=== PATIENT | female | born 1955 | race Caucasian/White ===

== ENCOUNTER → 2016-12-06 | Outpatient (CLI) | payer OTHER, BC ==
[~2016-12-06] MED LIST: ADAL1KIT; ALBUAER INH; BUTACAP36 PO; CALC600T9 PO; CLR10 PO; CYCL5TAB PO; CYM/30 PO; FEXO1TAB49 PO; FIBER PO; GABA-113 PO; HYDR0.5T PO; HYZ/50125 PO; KETO10TA PO; LORA-741 PO; METO50TA7 PO; NABU500T3 PO; NABU750T PO; OMEG10007 PO; OMEP40CA PO; PRED-301 PO; PSYLLIUM PO; RSTOPS OP; RXC5 PO; SNG10 PO; TRAM-10 PO; ULT50X PO
[2016-12-06 11:07] LABS: BASO % 1.3 %; BASO ABS # 0.07 K/uL (0-0.2); COMPLETE YES; HEMATOCRIT 40.4 % (37-47); LYMPH % 36.3 %; MEAN CELL VOLUME 84.5 fL (80-100); MEAN CORPUSCULAR HEMOGLOBIN 29.9 pg (25-34); MEAN CORPUSCULAR HGB CONC 35.4 g/dl (32-36); MEAN PLATELET VOLUME 9.1 fL (7.4-10.4); MONO % 7.1 %; NEUT % 50.3 %; PLATELET COUNT 228 K/uL (130-400); RED BLOOD COUNT 4.78 M/uL (4.2-5.4); WHITE BLOOD COUNT 5.24 K/uL (4.8-10.8)
[2016-12-06 11:39] LABS: BLOOD UREA NITROGEN 12 mg/dl (7-18); BUN/CREATININE RATIO 13.8 (10-20); CALCIUM 9.4 mg/dl (8.5-10.1); CARBON DIOXIDE 30 mmol/L (21-32); CHLORIDE 102 mmol/L (98-107); GLUCOSE 120 mg/dl (70-99); POTASSIUM 3.6 mmol/L (3.5-5.1); SODIUM 139 mmol/L (136-145)
== END | disposition home or self-care (01) ==
LOC: C.CPL 10:21
PROVIDERS: ATTEND Orthopaedic Surgery
DX: Z01.810 Encounter for preprocedural cardiovascular examination (principal); Z01.812 Encounter for preprocedural laboratory examination; M75.21 Bicipital tendinitis, right shoulder

== ENCOUNTER → 2016-12-29 | Day surgery (SDC) | payer OTHER, BC ==
[2016-12-12 10:09] VITALS: Ht 174 cm; Wt 88.6 kg
[~2016-12-29] VITALS: Ht 174 cm; Wt 88.6 kg
[~2016-12-29] MED LIST changes: +ATROPINE SULFATE 0.1 MG/ML 5ML SYR IV PRN; +BUPIVACAINE/EPINEPHRINE 0.25% 1:200,000 30 ML VIAL ONE; +BUPIVACAINE/EPINEPHRINE 0.5% MPF 1:200,000 30 ML VIAL ONE; +CEFAZOLIN 2000 MG/60 ML D5W IV SCH; -CLR10 PO; -CYCL5TAB PO; +DEXAMETHASONE SOD INJ 4 MG/ML VIAL ONE; +EpHEDrine SULFATE INJ 50 MG/ML AMP IV PRN; +EpHEDrine SULFATE INJ 50 MG/ML AMP ONE; +EpINEphrine INJ 1MG/ML AMP 1 MG/ML AMP ONE; +FENTANYL CITRATE INJ 50 MCG/1 ML 2 ML VIAL IV PRN; +FENTANYL CITRATE INJ 50 MCG/1 ML 2 ML VIAL ONE; +FLUMAZENIL 0.1 MG/1 ML 10 ML VIAL IV PRN; +KETOROLAC TROMETHAMINE 30 MG/ML VIAL IV. PRN; +LABETALOL HCL IV 5 MG/ML 20ML IV PRN; +LACTATED RINGER'S 1000ML 1,000 ML IV SCH; +LIDOCAINE HCL 2% 2 ML VIAL (20MG/ML) ONE; -LORA-741 PO; +MEPERIDINE HCL 25 MG/ML CARP IV PRN; +MIDAZOLAM HCL 1 MG/ML 2ML VIAL ONE; +NALOXONE HCL 0.4 MG/1 ML VIAL/CARP IV PRN; +ONDANSETRON INJ 2 MG/ML 2 ML VIAL IV PRN; +ONDANSETRON INJ 2 MG/ML 2 ML VIAL ONE; +PHENYLEPHRINE 100MCG/ML 5ML SYR IV PRN; +PHENYLEPHRINE HCL INJ 10 MG/ML VIAL ONE; +PROPOFOL IV EMULSION 10 MG/ML 20 ML VIAL IV ONE; +ROPIVACAINE 0.5% 5 MG/ML 30 ML VIAL ONE; -RXC5 PO; +SCOPOLAMINE 1.5 MG TDSY TD ONE; -SNG10 PO; +SODIUM CHLORIDE 0.9% 1000ML 1,000 ML IV SCH; +TRAMADOL HCL 50 MG TAB PO PRN
--- NOTE | 2016-12-29 11:09 | History & Physical Bridge - SC ---
H&P Re-Evaluation Bridge Note: I have examined the patient, reviewed the History & Physical and in the interval since the performance of the History & Physical I have noted the following changes of clinical significance: No changes noted
--- NOTE | 2016-12-29 12:38 | Discharge Instructions-SurgCtr ---
Discharge Instructions Visit Reason for Visit: Right Shoulder Biceps Tendinitis, Joint Pain Discharge Discharge Diagnosis / Problem: SAME ABOVE Discharge Goals Goal(s): Decrease discomfort, Improve function Medications Stopped Medications Name(s): Humira Last dose 12/10/16 Fiorinal Last dose 12/26/16 Fish Oil Last dose 12/18/16 Nabumetone Last Dose 12/18/16 Restart Stopped Medication(s): MAY RESTART 12/30/2016 Activity Recommendations Activity Limitations: resume your previous activity Lifting Limitations: gradually increase as tolerated Exercise/Sports Limitations: gradually increase as tolerated Anesthesia . Post Anesthesia Instructions: If you have had General Anesthesia or IV Sedation: * Do not drive today. * Resume driving when surgeon permits. * Do not make important decisions or sign legal documents today. * Call surgeon for: 1. Temperature elevations greater than 101 degrees F. 2. Uncontrollable pain. 3. Excessive bleeding. 4. Persistent nausea and vomiting. 5. Medication intolerance (nausea, vomiting or rash). * For nausea and vomiting use only clear liquids such as: tea, soda, bouillon until nausea subsides, then gradually increase diet as tolerated. * If you have any concerns or questions, call your surgeon's office. If physician is unavailable and it is an emergency, call 911 or go to the nearest emergency room. . Instructions / Follow-Up Instructions / Follow-Up MEDICATIONS: * Resume previous medications unless instructed otherwise by your surgeon. * Always take pain medication on a full stomach or with food to avoid upset stomach. * Do not drink alcohol or drive while taking narcotics. * Ibuprofen or Tylenol may be taken if narcotic not needed. SPECIAL CARE INSTRUCTIONS: __ None _X_ Keep extremity elevated and iced x 48 hours; apply ice 20-30 minutes 8-10 times/day. May remove at night. _X_ Sling (WEAR NEEDED FOR COMFORT) __24 hrs/day __ Remove at night __ Shoulder Immobilizer __ 24 hrs/day __ Remove at night _X_ Dressing __ Maintain until seen in office, may shower with plastic over site _X_ Remove dressings in 24-48 hours and then may shower _X_ Cover incisions with band-aids after showering __ Do not remove steri-strips Call physician if chills or temperature rises above 102 degrees or pain unrelieved by prescribed pain medications at . . Diet Recommendations Home Diet: no limitations Fluid Restriction: None Procedures Procedures Performed: Right Shoulder Arthroscopy, Extensive Debridement, Biceps Tenotomy Pending Studies Studies pending at discharge: no Work Instructions Return To Work: after follow-up Medical Emergencies . Who to Call and When: Medical Emergencies: If at any time you feel your situation is an emergency, please call 911 immediately. . Non-Emergent Contact Non-Emergency issues call your: Primary Care Provider Call Non-Emergent contact if: you have a fever, temperature is above 101.5 . . "Provider Documentation" section prepared by Kolton Arias.
[2016-12-29 13:06] VITALS: TEMP 37
--- NOTE | 2016-12-29 13:12 | OPERATIVE REPORT ---
DATE OF OPERATION: 12/29/2016 PREOPERATIVE DIAGNOSES: Postoperative adhesions and biceps tendinopathy of the right shoulder. POSTOPERATIVE DIAGNOSES: Postoperative adhesions, biceps tendinopathy, some continued external impingement and grade 4 osteoarthritis on the humeral head. PROCEDURES: Right shoulder diagnostic arthroscopy with lysis of adhesions, revision distal clavicle resection, acromioplasty and biceps tenotomy. SURGEON: Dr. Oliver Wells. LOAN INSPECTOR: Javi Arias PA-C, whose assistance was necessary for positioning the arm and helping with instrumentation. ANESTHESIA: General with a right interscalene nerve block. COMPLICATIONS: None. CONDITION: Stable to PACU. INDICATIONS: June is a pleasant 61-year-old female who fell about 2 years ago while at work. She underwent an arthroscopy about a year ago by Dr. Lara. She had decompression and distal clavicle resection at that time. Unfortunately, she did not do well postoperatively. She continued to have a lot of pain and soreness in the shoulder. After failing a year of conservative treatment, she came to me for a second opinion. MRI showed no rotator cuff tears and examination was significant for postoperative adhesions. She was also having a lot of pain down the biceps tendon and elected to undergo arthroscopy. DESCRIPTION OF PROCEDURE: On 12/29/2016, she arrived at the [facility] for the above procedure. She was seen in the preoperative holding area and the operative extremity was identified and signed. She was given a preoperative antibiotic and a right interscalene nerve block. She was taken back to the operating room, laid on the table in supine position and put under general anesthesia. She was then put into the beachchair position. The right shoulder was prepped and draped in the sterile fashion. Time-out was done and the patient and operative extremity was properly identified. A scope was introduced into the posterior portal. Diagnostic arthroscopy showed grade 4 chondral changes throughout the majority of the humeral head. This was more arthritis than I was expected to find. I saw no chondral damage on the glenoid. There were some fraying and tearing of the anterior and superior labrum. The biceps tendon was still intact and was red on the dorsal aspect. The supraspinatus, infraspinatus, teres minor, and subscapularis were all checked and intact. An anterior portal was made. A shaver was used to do a debridement of the intraarticular structures and the biceps tendon was arthroscopically tenotomized. The scope was then put into the subacromial space. A lateral portal was made. A shaver was used to do a complete lysis of adhesions of the entire subacromial and subdeltoid space. Significant time was spent using 2 different jessica to remove the scar tissue in the area. I believe this was causing most of her symptoms. I still saw some bone spurring of the far anterior acromion and a 5-0 gigi was used to complete an acromioplasty. A shaver was used to remove any excess debris. Attention was turned to the distal clavicle. A shaver was used to remove all the scar tissue from the distal clavicle down to the rotator cuff. A 5-0 gigi was used to co-plane the undersurface of the clavicle some and a shaver was used to remove some of the painful scar tissue within the distal clavicle region. Multiple pictures were taken. Arthroscopic instruments were removed from the shoulder. Portal sites were closed with 3-0 nylon. She was then placed in a soft dressing and regular arm sling. She was then extubated, transferred to a [facility] and taken to the postanesthesia care unit in stable condition. She tolerated the procedure well. I attest to the content of the Intraoperative Record and any orders documented therein. Any exceptio ns are noted below.
--- NOTE | 2016-12-29 13:44 | Anesthesia Progress Nt - [facility] ---
Anesthesia Post Op Note Date & Time Dec 29, 2016 at 13:44 Vital Signs Pain Intensity: 0 Vital Signs Past 12 Hours Date Time Temp Pulse Resp B/P Pulse Ox O2 Delivery O2 Flow Rate FiO2 12/29/16 13:20 66 20 152/65 98 Room Air 12/29/16 13:09 75 18 94 12/29/16 13:09 75 18 12/29/16 13:08 147/82 12/29/16 13:06 37.0 72 16 156/74 94 Room Air 12/29/16 13:04 76 17 93 12/29/16 13:04 75 17 12/29/16 13:03 156/74 12/29/16 12:59 78 20 12/29/16 12:59 78 20 94 12/29/16 12:58 91/82 12/29/16 12:54 78 20 96 12/29/16 12:54 84 20 12/29/16 12:53 78 16 12/29/16 12:53 77 16 155/71 96 12/29/16 12:49 139/81 12/29/16 12:48 77 16 12/29/16 12:48 79 16 100 12/29/16 12:43 76 13 12/29/16 12:43 76 13 155/66 100 12/29/16 12:38 36.6 91 12 157/93 100 Diffusion Mask 6 12/29/16 12:38 83 15 163/68 100 12/29/16 12:38 84 15 12/29/16 11:25 88 12/29/16 11:25 88 35 98 12/29/16 11:24 81 12/29/16 11:24 81 15 97 12/29/16 11:23 136/71 12/29/16 11:22 78 12/29/16 11:22 77 11 98 12/29/16 11:21 76 12/29/16 11:21 77 18 97 12/29/16 11:18 139/54 12/29/16 11:16 80 25 98 12/29/16 11:16 80 12/29/16 11:15 81 24 99 12/29/16 11:15 82 12/29/16 11:13 139/60 12/29/16 11:10 92 36 98 12/29/16 11:10 93 12/29/16 11:08 145/66 12/29/16 11:05 83 12/29/16 11:05 82 31 98 12/29/16 11:04 76 12/29/16 11:04 76 16 99 12/29/16 11:03 144/74 12/29/16 10:59 77 12/29/16 10:59 77 18 99 12/29/16 10:58 137/56 12/29/16 10:55 82 12/29/16 10:55 82 22 98 12/29/16 10:53 154/74 12/29/16 10:50 76 12/29/16 10:50 76 13 100 12/29/16 10:49 76 18 100 12/29/16 10:49 76 12/29/16 10:48 149/68 12/29/16 10:44 74 12/29/16 10:44 74 15 100 12/29/16 10:43 77 16 141/73 100 12/29/16 10:43 78 12/29/16 10:38 82 26 142/63 12/29/16 10:33 80 18 157/79 100 12/29/16 10:33 82 12/29/16 10:32 83 12/29/16 10:32 81 30 97 12/29/16 10:31 147/71 12/29/16 10:27 79 0 12/29/16 10:22 0 12/29/16 10:17 81 0 12/29/16 10:12 76 0 12/29/16 10:07 70 0 12/29/16 10:02 78 0 12/29/16 09:57 77 16 12/29/16 09:57 16 12/29/16 08:52 36.7 79 18 127/81 100 Room Air Notes Mental Status: alert / awake / arousable, participated in evaluation Pt Amnestic to Procedure: Yes Nausea / Vomiting: adequately controlled Pain: adequately controlled Airway Patency, RR, SpO2: stable & adequate BP & HR: stable & adequate Hydration State: stable & adequate Anesthetic Complications: no major complications apparent
[2016-12-29 13:46] VITALS: BP 146/82; PULSE 67; O2SAT 96
== END | disposition home or self-care (01) ==
LOC: X.SURG 08:36
PROVIDERS: ATTEND Orthopaedic Surgery
DX: M75.21 Bicipital tendinitis, right shoulder (principal); M75.01 Adhesive capsulitis of right shoulder; M75.41 Impingement syndrome of right shoulder; I34.8 Other nonrheumatic mitral valve disorders; M06.9 Rheumatoid arthritis, unspecified; K76.0 Fatty (change of) liver, not elsewhere classified; Z90.710 Acquired absence of both cervix and uterus; Z98.890 Other specified postprocedural states

== ENCOUNTER 2017-05-01 08:11 | Inpatient (IN) | payer BC, OTHER ==
[2017-04-24 11:13] VITALS: BMI 29.0
--- NOTE | 2017-04-24 11:57 | PAT Medication Instructions ---
Service Date Apr 24, 2017. Current Home Medication List Albuterol Sulfate (Proventil Hfa), 2 PUFFS INH Q4H PRN for SOB/Wheezing Eumifcijui-Uqexeaa-Msvxhkko (Fiorinal), 1 TAB PO Q4H PRN for RN Calcium Carbonate-Vitamin D (Calcium + D), 1 TAB PO BID Cyclosporine (Restasis Eye Drops), 1 DROP OP BID Duloxetine HCl (Cymbalta), 30 MG PO QPM Fexofenadine Hcl (Holly Allergy), 1 TAB PO QAM Fish Oil ([place]-3), 1,200 MG PO BID Gabapentin (Neurontin), 300 MG PO QPM Hctz/Losartan (Hyzaar 12.5MG/50MG), 0.5 TAB PO BID Hydroxychloroquine Sulfate (Plaquenil), 200 MG PO BID Metoprolol Succ (Toprol Xl) (Toprol-Xl), 50 MG PO QAM Nabumetone (Relafen), 750 MG PO BID Omeprazole (Prilosec), 40 MG PO QAM Prednisone (Prednisone), 5 MG PO BID Tramadol (Ultram), 50 MG PO Q8H PRN for Pain [Psyllium], 1 TAB PO QPM Medication Instructions For Your Scheduled Surgery Cfqvpbcuqr-Fenfkih-Xirkvnel (Fiorinal), 1 TAB PO Q4H PRN for RN (not taking currently) Hydroxychloroquine Sulfate (Plaquenil), 200 MG PO BID (patient will check with review scheduling coordinator for instructions) Prednisone (Prednisone), 5 MG PO BID (continue as directed) - Patient has been holding following medications since 04/21/17: Fish Oil ([place]-3), 1,200 MG PO BID Nabumetone (Relafen), 750 MG PO BID - Hold the following medications the morning of surgery: Hctz/Losartan (Hyzaar 12.5MG/50MG), 0.5 TAB PO BID Fexofenadine Hcl (Holly Allergy), 1 TAB PO QAM Calcium Carbonate-Vitamin D (Calcium + D), 1 TAB PO BID - Take the following medications the morning of surgery with a sip of water: Tramadol (Ultram), 50 MG PO Q8H PRN for Pain (can take up to four hours prior to surgery if needed) Omeprazole (Prilosec), 40 MG PO QAM Metoprolol Succ (Toprol Xl) (Toprol-Xl), 50 MG PO QAM Cyclosporine (Restasis Eye Drops), 1 DROP OP BID Albuterol Sulfate (Proventil Hfa), 2 PUFFS INH Q4H PRN for SOB/Wheezing ( bring with you to hospital on day of surgery) - Take the following medications as scheduled the night before surgery: Psyllium, 1 TAB PO QPM Tramadol (Ultram), 50 MG PO Q8H PRN for Pain Gabapentin (Neurontin), 300 MG PO QPM Duloxetine HCl (Cymbalta), 30 MG PO QPM Cyclosporine (Restasis Eye Drops), 1 DROP OP BID Calcium Carbonate-Vitamin D (Calcium + D), 1 TAB PO BID Albuterol Sulfate (Proventil Hfa), 2 PUFFS INH Q4H PRN for SOB/Wheezing If you have any questions please call us at [phone] or [phone] ( [place]) or [phone]
--- NOTE | 2017-04-24 12:34 | DIAGNOSTIC IMAGING REPORT ---
CHEST PREADMISSION(PA/LAT) CLINICAL HISTORY: PAT preoperative evaluation COMPARISON STUDY: 03/11/2015 FINDINGS: Chronic change. Unaltered scattered calcified granulomas. Minimal apical pleural thickening considered chronic. IMPRESSION: Chronic change. No acute process. Electronically signed by: Juan Luis Stovall M.D. 04/24/2017 12:33 PM Dictated Date/Time: 04/24/2017 12:33 PM
[2017-04-24 12:55] LABS: BASO % 0.4 %; BASO ABS # 0.04 K/uL (0-0.2); COMPLETE YES; EOS % 1.5 %; HEMATOCRIT 44.4 % (37-47); IG% 0.5 %; LYMPH % 20.5 %; MEAN CELL VOLUME 84.3 fL (80-100); MEAN CORPUSCULAR HEMOGLOBIN 28.8 pg (25-34); MEAN CORPUSCULAR HGB CONC 34.2 g/dl (32-36); MEAN PLATELET VOLUME 8.9 fL (7.4-10.4); MONO % 7.7 %; NEUT % 69.4 %; PLATELET COUNT 314 K/uL (130-400); RED BLOOD COUNT 5.27 M/uL (4.2-5.4); WHITE BLOOD COUNT 9.26 K/uL (4.8-10.8)
[2017-04-24 12:58] LABS: URINE APPEARANCE CLEAR (CLEAR); URINE BILIRUBIN NEG (NEG); URINE COLOR YELLOW; URINE NITRITE NEG (NEG); URINE PH 7.5 (4.5-7.5); URINE SPECIFIC GRAVITY 1.012 (1.000-1.030); UROBILINOGEN NEG (NEG)
[2017-04-24 13:04] LABS: MANUAL MICROSCOPIC REQUIRED? NO; REVIEW REQ? NO
[2017-04-24 13:07] LABS: BUN/CREATININE RATIO 14.2 (10-20); CALCIUM 9.5 mg/dl (8.5-10.1); CREATININE 0.78 mg/dl (0.60-1.20); POTASSIUM 4.1 mmol/L (3.5-5.1)
[~2017-05-01] VITALS: Ht 175.3 cm; Wt 89.6 kg
[2017-05-01] VITALS (9 sets, daily range): BP systolic 117–146; BP diastolic 58–83; PULSE 71–82; TEMP 36.1–36.8; O2SAT 96–100; Ht 175.3 cm; Wt 89.6 kg
[~2017-05-01 08:11] MED LIST changes: -ADAL1KIT; -ATROPINE SULFATE 0.1 MG/ML 5ML SYR IV PRN; -BUPIVACAINE/EPINEPHRINE 0.25% 1:200,000 30 ML VIAL ONE; -BUPIVACAINE/EPINEPHRINE 0.5% MPF 1:200,000 30 ML VIAL ONE; +CEFAZOLIN 2000 MG/60 ML D5W 60 ML IV SCH; -CEFAZOLIN 2000 MG/60 ML D5W IV SCH; -DEXAMETHASONE SOD INJ 4 MG/ML VIAL ONE; -EpHEDrine SULFATE INJ 50 MG/ML AMP IV PRN; -EpHEDrine SULFATE INJ 50 MG/ML AMP ONE; -EpINEphrine INJ 1MG/ML AMP 1 MG/ML AMP ONE; -FENTANYL CITRATE INJ 50 MCG/1 ML 2 ML VIAL IV PRN; -FENTANYL CITRATE INJ 50 MCG/1 ML 2 ML VIAL ONE; -FIBER PO; -FLUMAZENIL 0.1 MG/1 ML 10 ML VIAL IV PRN; -KETO10TA PO; -KETOROLAC TROMETHAMINE 30 MG/ML VIAL IV. PRN; -LABETALOL HCL IV 5 MG/ML 20ML IV PRN; -LACTATED RINGER'S 1000ML 1,000 ML IV SCH; +LACTATED RINGER'S 1000ML IV SCH; -LIDOCAINE HCL 2% 2 ML VIAL (20MG/ML) ONE; -MEPERIDINE HCL 25 MG/ML CARP IV PRN; -MIDAZOLAM HCL 1 MG/ML 2ML VIAL ONE; -NABU750T PO; -NALOXONE HCL 0.4 MG/1 ML VIAL/CARP IV PRN; -ONDANSETRON INJ 2 MG/ML 2 ML VIAL IV PRN; -ONDANSETRON INJ 2 MG/ML 2 ML VIAL ONE; -PHENYLEPHRINE 100MCG/ML 5ML SYR IV PRN; -PHENYLEPHRINE HCL INJ 10 MG/ML VIAL ONE; -PROPOFOL IV EMULSION 10 MG/ML 20 ML VIAL IV ONE; -ROPIVACAINE 0.5% 5 MG/ML 30 ML VIAL ONE; -SCOPOLAMINE 1.5 MG TDSY TD ONE; +SCOPOLAMINE 1.5 MG TDSY TD SCH; -SODIUM CHLORIDE 0.9% 1000ML 1,000 ML IV SCH; -TRAMADOL HCL 50 MG TAB PO PRN; -ULT50X PO
[2017-05-01] MEDS ORDERED: FENTANYL CITRATE INJ 50 MCG/1 ML 2 ML VIAL IV PRN (09:45)
[2017-05-01] MEDS ORDERED: ATROPINE SULFATE 0.1 MG/ML 5ML SYR IV PRN (09:45)
[2017-05-01] MEDS ORDERED: EpHEDrine SULFATE INJ 50 MG/ML AMP IV PRN (09:45)
[2017-05-01] MEDS ORDERED: ONDANSETRON INJ 2 MG/ML 2 ML VIAL IV PRN ×2 (09:45→13:30)
[2017-05-01] MEDS ORDERED: HYDROmorphone INJ 1 MG/ML SYR IV PRN (09:45)
[2017-05-01] MEDS ORDERED: SCOPOLAMINE 1.5 MG TDSY TD ONE (09:48)
--- NOTE | 2017-05-01 10:10 | History and Physical ---
History & Physical Date May 01, 2017. Chief Complaint back and leg pain History of Present Illness The patient is a 61 year old female with complaints of Additional History Hepatic Disease: No Endocrine Disorder: No Kidney Disease: No Hypertension: No Heart Disease: No Bleeding Tendencies: No Infectious Diseases: No Allergies Coded Allergies: Dust (Verified Allergy, Unknown, SNEEZING,RUNNY NOSE ITCHY, 05/01/17) Grass (Verified Allergy, Unknown, SNEEZING, ITCHY, 05/01/17) Molds and Smuts (Verified Allergy, Unknown, SNEEZING,ITCHY, 05/01/17) Penicillins (Verified Allergy, Unknown, RASH, 05/01/17) Codeine (Verified Adverse Reaction, Unknown, N/V, 05/01/17) Erythromycin (Verified Adverse Reaction, Unknown, SEVERE STOMACH CRAMPS, DIARRHEA, NAUSEA, 05/01/17) Morphine (Verified Adverse Reaction, Unknown, N/V, 05/01/17) Home Medications Scheduled Calcium Carbonate-Vitamin D (Calcium + D), 1 TAB PO BID Cyclosporine (Restasis Eye Drops), 1 DROP OP BID Duloxetine HCl (Cymbalta), 30 MG PO QPM Fexofenadine Hcl (Holly Allergy), 1 TAB PO QAM Fish Oil ([place]-3), 1,200 MG PO BID Gabapentin (Neurontin), 300 MG PO QPM Hctz/Losartan (Hyzaar 12.5MG/50MG), 0.5 TAB PO BID Hydroxychloroquine Sulfate (Plaquenil), 200 MG PO BID Metoprolol Succ (Toprol Xl) (Toprol-Xl), 50 MG PO QAM Nabumetone (Relafen), 750 MG PO BID Omeprazole (Prilosec), 40 MG PO QAM Prednisone (Prednisone), 5 MG PO BID [Psyllium], 1 TAB PO QPM Scheduled PRN Albuterol Sulfate (Proventil Hfa), 2 PUFFS INH Q4H PRN for SOB/Wheezing Gtawigjhnv-Ogggkpd-Hequcrrw (Fiorinal), 1 TAB PO Q4H PRN for RN Tramadol (Ultram), 50 MG PO Q8H PRN for Pain Physical Examination Skin: warm/dry, no rash Eyes: normal inspection, EOMI, sclerae normal ENT: normal ENT inspection, pharynx normal Head: normocephalic, atraumatic Neck: supple, no adenopathy, trachea midline Respiratory/Chest: lungs clear, normal breath sounds, no respiratory distress Cardiovascular: regular rate, rhythm, no edema, no murmur Abdomen / GI: normal bowel sounds, non tender Back: normal inspection Extremities: normal inspection, normal range of motion Neurologic/Psych: no motor/sensory deficits, alert, normal reflexes, oriented x 3 Diagnosis lumbar stenosis Plan of Treatment decompression fusion L4-S1
[2017-05-01] MEDS ORDERED: BACITRACIN 50000 UNIT VIAL ONE (11:07)
[2017-05-01] MEDS ORDERED: SODIUM CHLORIDE 0.9% PF 50 ML VIAL ONE (11:07)
[2017-05-01] MEDS ORDERED: BUPIVACAINE/EPINEPHRINE 0.25% 1:200,000 30 ML VIAL ONE (11:08)
[2017-05-01] MEDS ORDERED: MIDAZOLAM HCL 1 MG/ML 2ML VIAL ONE (11:14)
[2017-05-01] MEDS ORDERED: FENTANYL CITRATE INJ 50 MCG/1 ML 2 ML VIAL ONE ×2 (11:14→11:46)
[2017-05-01] MEDS ORDERED: HYDROmorphone INJ 2 MG/ML SYR/VIAL ONE ×2 (11:46→13:17)
[2017-05-01] MEDS ORDERED: LIDOCAINE HCL 2% 2 ML VIAL (20MG/ML) ONE (12:31)
[2017-05-01] MEDS ORDERED: EpHEDrine SULFATE 50MG/5ML SYR ONE ×2 (12:31→13:16)
[2017-05-01] MEDS ORDERED: PROPOFOL IV EMULSION 10 MG/ML 20 ML VIAL IV ONE (12:31)
[2017-05-01] MEDS ORDERED: ESMOLOL HCL 10 MG/ML 10 ML VIAL ONE (12:31)
[2017-05-01] MEDS ORDERED: DEXAMETHASONE SOD INJ 4 MG/ML VIAL ONE (12:31)
[2017-05-01] MEDS ORDERED: FLOSEAL HEMOSTATIC MATRIX 10ML TOP ONE (13:12)
[2017-05-01] MEDS ORDERED: PHENYLEPHRINE 100MCG/ML 5ML SYR ONE (13:16)
[2017-05-01] MEDS ORDERED: RANITIDINE HCL 25 MG/ML INJ ONE (13:16)
[2017-05-01] MEDS ORDERED: KETOROLAC TROMETHAMINE 30 MG/ML VIAL ONE (13:16)
[2017-05-01] MEDS ORDERED: METOCLOPRAMIDE HCL INJ 5 MG/ML 2 ML VIAL ONE (13:16)
[2017-05-01] MEDS ORDERED: ONDANSETRON INJ 2 MG/ML 2 ML VIAL ONE (13:16)
[2017-05-01] MEDS ORDERED: SODIUM CHLORIDE 0.9% 1000ML 1,000 ML IV SCH (13:16)
--- NOTE | 2017-05-01 13:16 | [facility] Operative Report ---
Operative Report Operative Date May 01, 2017. Pre-Operative Diagnosis Lumbar Stenosis Post-Operative Diagnosis same Procedure(s) Performed decomp fusion Surgeon Dr. Modesto Donovan Die Set Up Worker Surgeon(s) Oneyda Barahona PA-C Findings stenosis Specimens none per surgeon I attest to the content of the Intraoperative Record and any orders documented therein. Any exceptions are noted below.
--- NOTE | 2017-05-01 13:22 | DIAGNOSTIC IMAGING REPORT ---
LUMBAR SPINE, INTRAOPERATIVE FLUOROSCOPY HISTORY: L4 S1 decompression and fusion. FLUOROSCOPY TIME: 21 seconds. FINDINGS: Intraoperative fluoroscopy was provided for the lumbar spine. 2 fluoroscopic spot images were obtained. Posterior decompression fusion from L4 through S1 with pedicle screws and rods. The hardware appears intact. Curvilinear radiopaque foreign body overlying the L5 level on the AP view may correspond to a surgical sponge. The surgeon is aware of this finding. IMPRESSION: Fluoroscopy provided for a L4-S1 posterior decompression fusion. Electronically signed by: Phi Milian M.D. 05/01/2017 1:21 PM Dictated Date/Time: 05/01/2017 1:20 PM
[2017-05-01] MEDS ORDERED: LORAZEPAM 0.5 MG TAB PO PRN (13:30)
[2017-05-01] MEDS ORDERED: BUTALBITAL/ASA/CAFFEINE 1 EA TAB/CAP PO PRN (13:30)
[2017-05-01] MEDS ORDERED: SOD PHOSPHATE/SOD BIPHOSPHATE ENEMA 132 ML BTL PR PRN (13:30)
[2017-05-01] MEDS ORDERED: FAMOTIDINE 20 MG TAB PO PRN (13:30)
[2017-05-01] MEDS ORDERED: ALBUTEROL HFA 8 GM INHALER INH PRN (13:30)
[2017-05-01] MEDS ORDERED: METOCLOPRAMIDE HCL INJ 5 MG/ML 2 ML VIAL IV PRN (13:30)
[2017-05-01] MEDS ORDERED: DO NOT ADMINISTER PNEUMOCOCCAL VACCINE PRN ×2 (13:30)
[2017-05-01] MEDS ORDERED: NALOXONE HCL 0.4 MG/1 ML VIAL/CARP IV PRN ×2 (13:30)
[2017-05-01] MEDS ORDERED: TRAMADOL HCL 50 MG TAB PO PRN (13:30)
[2017-05-01] MEDS ORDERED: hydrOXYzine HCL 25 MG TAB PO PRN (13:30)
[2017-05-01] MEDS ORDERED: ACETAMINOPHEN IV 100 ML IV PRN (13:30)
[2017-05-01] MEDS ORDERED: BISACODYL 10 MG SUPP PR PRN (13:30)
[2017-05-01] MEDS ORDERED: DO NOT ADMINISTER FLU VACCINE PRN ×3 (13:30)
[2017-05-01] MEDS ORDERED: PROMETHAZINE HCL INJ 12.5 MG in SODIUM CHLORIDE 0.9% 50ML 50 ML IV PRN (13:30)
[2017-05-01] MEDS ORDERED: MAGNESIUM HYDROXIDE SUSP 30 ML UDC PO PRN (13:30)
[2017-05-01] MEDS ORDERED: ALUMINUM/MAGNESIUM SUSP 30 ML UDC PO PRN (13:30)
[2017-05-01] MEDS ORDERED: LORAZEPAM INJ 0.5 MG in SYRINGE 0 ML IV PRN (13:30)
[2017-05-01] MEDS: HYDROmorphone HCL 0.5MG/ML 50 ML CASSETTE IV PRN ×4 (13:56→22:56)
--- NOTE | 2017-05-01 14:10 | Anesthesiology Progress Note ---
Anesthesia Post Op Note Date & Time May 01, 2017 at 14:09 Vital Signs Pain Intensity: 4 Vital Signs Past 12 Hours Date Time Temp Pulse Resp B/P (MAP) Pulse Ox O2 Delivery O2 Flow Rate FiO2 05/01/17 13:57 77 19 99 05/01/17 13:57 77 19 05/01/17 13:56 149/66 05/01/17 13:52 72 15 05/01/17 13:52 72 15 100 05/01/17 13:51 152/64 05/01/17 13:47 77 21 05/01/17 13:47 76 21 100 05/01/17 13:46 137/71 05/01/17 13:42 79 18 05/01/17 13:42 78 18 100 05/01/17 13:41 148/64 05/01/17 13:37 84 18 05/01/17 13:37 86 18 93 05/01/17 13:36 149/67 05/01/17 13:33 153/74 05/01/17 13:32 36.2 92 14 153/74 100 Mask 5 05/01/17 09:07 36.6 74 20 144/83 99 Room Air Notes Mental Status: alert / awake / arousable, participated in evaluation Pt Amnestic to Procedure: Yes Nausea / Vomiting: adequately controlled Pain: adequately controlled Airway Patency, RR, SpO2: stable & adequate BP & HR: stable & adequate Hydration State: stable & adequate Anesthetic Complications: no major complications apparent
[2017-05-01] MEDS: LACTATED RINGER'S 1000ML 1,000 ML IV SCH ×2 (15:03→19:56)
[2017-05-01] MEDS: CHECK SCOPOLAMINE PATCH PLACEMENT SCH (15:22)
--- NOTE | 2017-05-01 16:28 | OPERATIVE REPORT ---
DATE OF OPERATION: 05/01/2017 PREOPERATIVE DIAGNOSIS: Spinal stenosis, L4-L5 and L5-S1. POSTOPERATIVE DIAGNOSIS: Same. PROCEDURES PERFORMED: 1. Revision decompression, medial facetectomy and foraminotomy, L4-L5 and L5-S1. 2. Posterior spinal fusion, L4-L5 and L5-S1. 3. Placement of posterior segmental instrumentation using Orthros rods and screws, L4-L5 and L5-S1. 4. Interbody fusion, L5-S1. 5. Placement of PEEK cage 11 x 22 mm at L5-S1. 6. Placement of locally harvested morcellized autograft in the posterior gutters. 7. Placement of Infuse collagen sponge combined with Mastergraft in the posterior gutters and Kerry bone graft in the interbody space. SURGEON: Dr. Modesto Donovan. OIL BURNER REPAIRER: Oneyda Barahona PA-C. Due to the complex nature of the procedure, the entire surgery was performed with the assistant foreman of Oneyda Barahona PA-C. The social service assistant, under direct supervision, was involved in the actual performance of all aspects of the surgical procedure including hemostasis, tissue retraction and incision, instrument management, patient positioning, and wound closure. ANESTHESIA: General. DISPOSITION: The patient awakened and taken to PACU in stable condition. HISTORY OF PATIENT'S PROBLEMS: This is a 61-year-old female, well known to me that presents with above-mentioned diagnosis. After failing an extensive course of nonoperative care, she elected to undergo the above-mentioned procedures. Risks, benefits, pros, cons, and alternatives were outlined in detail preoperatively. DESCRIPTION OF PROCEDURE: The patient was met preoperatively, case discussed and all questions were addressed. At that point, the patient was taken back to operative suite and after undergoing successful general intubation by the department of anesthesia, she was placed in prone position on the Olegario table atop Jay frame. All bony prominences were well padded and the eyes were inspected to ensure there was no external pressure placed upon them. At this point, the lumbar spine was prepped and draped in normal sterile fashion. Utilizing the previous incision site, sharp dissection with the assistance of Bovie cautery was performed down to and exposing the remaining lamina and transverse processes of L4, L5 and sacral ala bilaterally. I then performed a revision complete laminectomy of L5 and L4 addressing severe lateral recess and foraminal stenosis. After complete decompression, pedicle screws were then placed in L4, L5 and S1 levels bilaterally with the assistance of fluoroscopy and the appropriate size lester provisionally placed. Through transforaminal approach on the right, a complete diskectomy of L5-S1 was performed, endplates curetted to subcortical bleeding bone and an 11 x 22 mm PEEK cage filled with Kerry bone grafting tapped into position. The rods were then locked into final position bilaterally and transverse processes of L4-L5 and sacral ala burred to subcortical bleeding bone. Infuse collagen sponge combined with Mastergraft and locally harvested morcellized autograft was placed in the posterior gutters. A 7 flat KAMALJIT drain was inserted. Incision was closed with 1-0 Vicryl in the fascia, 2-0 Vicryl subcutaneously, and 4-0 Monocryl for final skin closure. Steri-Strips and sterile dressing placed. The patient was awakened and taken to PACU in stable condition. I attest to the content of the Intraoperative Record and any orders documented therein. Any exception s are noted below.
[2017-05-01] MEDS: CLINDAMYCIN IV 600 MG in DEXTROSE 5% ADD-VANTAGE 50ML 50 ML IV SCH (19:57)
[2017-05-01] MEDS: DEXAMETHASONE INJ 6 MG in SYRINGE 0 ML IV SCH (20:28)
[2017-05-01] MEDS: DOCUSATE SODIUM/SENNA 50/8.6MG TAB PO SCH (20:35)
[2017-05-01] MEDS: DULOXETINE (CYMBALTA) 30 MG CAP PO SCH (20:36)
[2017-05-01] MEDS: GABAPENTIN 300 MG CAP PO SCH (20:36)
[2017-05-01] MEDS: LOSARTAN/HCTZ 50-12.5 EA TAB PO SCH (20:36)
[2017-05-02] MEDS: CHECK SCOPOLAMINE PATCH PLACEMENT SCH ×3 (00:04→16:11)
[2017-05-02] MEDS: LACTATED RINGER'S 1000ML 1,000 ML IV SCH (01:59)
[2017-05-02] MEDS: DEXAMETHASONE INJ 6 MG in SYRINGE 0 ML IV SCH ×2 (03:34→11:27)
[2017-05-02] MEDS: CLINDAMYCIN IV 600 MG in DEXTROSE 5% ADD-VANTAGE 50ML 50 ML IV SCH (03:34)
[2017-05-02 03:53] VITALS: BP 138/71; PULSE 75; TEMP 36.8; O2SAT 100
[2017-05-02] MEDS ORDERED: DC PCA SCH (06:00)
[2017-05-02] MEDS ORDERED: HYDROmorphone INJ 0.5 MG/0.5 ML SYR IV PRN (06:01)
[2017-05-02] MEDS ORDERED: OXYCODONE HCL IR 5 MG TAB (IMMEDIATE RELEASE) PO PRN (06:01)
[2017-05-02 06:03] LABS: BASO % 0.1 %; BASO ABS # 0.01 K/uL (0-0.2); COMPLETE YES; HEMATOCRIT 34.9 % (37-47); IG% 0.3 %; LYMPH % 3.3 %; LYMPH ABS # 0.47 K/uL (1.2-3.4); MEAN CELL VOLUME 86.4 fL (80-100); MEAN CORPUSCULAR HEMOGLOBIN 28.7 pg (25-34); MEAN CORPUSCULAR HGB CONC 33.2 g/dl (32-36); NEUT % 93.3 %; PLATELET COUNT 199 K/uL (130-400); RED BLOOD COUNT 4.04 M/uL (4.2-5.4); WHITE BLOOD COUNT 14.11 K/uL (4.8-10.8)
[2017-05-02] MEDS ORDERED: NURSING VERBAL MED ORDER ONE ×2 (06:15→08:00)
[2017-05-02 06:43] LABS: BUN/CREATININE RATIO 8.3 (10-20); CALCIUM 8.8 mg/dl (8.5-10.1); CREATININE 0.75 mg/dl (0.60-1.20); POTASSIUM 3.6 mmol/L (3.5-5.1)
[2017-05-02] MEDS: ACETAMINOPHEN 500 MG TAB PO PRN ×2 (07:20→19:29)
[2017-05-02 07:52] VITALS: BP 150/72; PULSE 84; TEMP 37; O2SAT 98
--- NOTE | 2017-05-02 07:59 | Anesthesiology Progress Note ---
Anesthesia Post Op Note Date & Time May 02, 2017 at 07:58 Vital Signs Vital Signs Past 12 Hours Date Time Temp Pulse Resp B/P (MAP) Pulse Ox O2 Delivery O2 Flow Rate FiO2 05/02/17 07:55 Room Air 05/02/17 07:52 37.0 84 16 150/72 (98) 98 Room Air 05/02/17 07:37 Room Air 05/02/17 03:53 36.8 75 18 138/71 (93) 100 Room Air 05/01/17 23:00 Room Air 05/01/17 22:55 36.5 77 18 133/68 (89) 98 Room Air 05/01/17 20:31 36.8 74 16 126/58 (80) 99 Room Air
[2017-05-02] MEDS: FEXOFENADINE HCL 180 MG TAB PO SCH (08:30)
[2017-05-02] MEDS: PANTOprazole SOD 40 MG TAB PO SCH (08:30)
[2017-05-02] MEDS: LOSARTAN/HCTZ 50-12.5 EA TAB PO SCH ×2 (08:30→20:40)
[2017-05-02] MEDS: METOPROLOL SUCC 50MG EXT REL TAB PO SCH (08:31)
--- NOTE | 2017-05-02 09:30 | PROGRESS NOTE ---
DATE: 05/02/2017 HISTORY OF PRESENT ILLNESS: Postop day 1. Back pain is controlled. Leg pain improved. Vital signs stable. T-max 37.0. KAMALJIT drained 130 mL. Hematocrit this a.m. is 34.9. PHYSICAL EXAMINATION: She is ambulating halls. She is quite comfortable, good strength to testing. ASSESSMENT: Status post lumbar decompression and fusion. PLAN: At this time, we will initiate physical therapy, advance her bowel regimen and anticipate home possibly tomorrow.
[2017-05-02 12:01] VITALS: BP 134/58; PULSE 68; TEMP 37.1; O2SAT 100
[2017-05-02] MEDS: TRAMADOL HCL 50 MG TAB PO PRN ×2 (12:30→20:37)
[2017-05-02 16:06] VITALS: BP 125/65; PULSE 85; TEMP 37.2; O2SAT 99
[2017-05-02] MEDS: DULOXETINE (CYMBALTA) 30 MG CAP PO SCH (20:37)
[2017-05-02] MEDS: GABAPENTIN 300 MG CAP PO SCH (20:39)
[2017-05-02] MEDS: DOCUSATE SODIUM/SENNA 50/8.6MG TAB PO SCH (20:39)
[2017-05-02 23:00] VITALS: BP 122/57; PULSE 65; TEMP 36.8; O2SAT 100
[2017-05-03] MEDS: CHECK SCOPOLAMINE PATCH PLACEMENT SCH
[2017-05-03] MEDS: POLYETHYLENE (MIRALAX) 17 GM PACK PO SCH ×2 (05:56→12:19)
[2017-05-03] MEDS: TRAMADOL HCL 50 MG TAB PO PRN (06:06)
[2017-05-03 06:11] VITALS: BP 129/70; PULSE 69; TEMP 36.8; O2SAT 100
[2017-05-03] MEDS ORDERED: ULT50X PO (07:35)
--- NOTE | 2017-05-03 07:36 | Discharge Instructions ---
Discharge Instructions Date of Service May 03, 2017. Admission Reason for Admission: Lumbar Stenosis With Neurogenic Claudication Discharge Discharge Diagnosis / Problem: stenosis Discharge Goals Goal(s): Improve function Activity Recommendations Activity Limitations: per Instructions/Follow-up section . Instructions / Follow-Up Instructions / Follow-Up ACTIVITY RECOMMENDATIONS: SELF CARE INSTRUCTIONS AFTER THORACIC/LUMBAR FUSIONS 1. You may walk to your tolerance. It is good exercise for your legs and back. Expect some back and intermittent leg aches and pains. 2. You may perform "counter-top" level activities (make a sandwich, david with a project, etc.). 3. No bending or lifting of more than 10 pounds or back twisting of any nature (roll like a log when turning in bed). 4. You may ride in a car for 20-30 minutes at a time. No driving until after your first visit with your doctor. 5. Frequent changes of position and restricting sitting to 30 minutes at a time will help limit the amount of back spasms and stiffness you may experience. 6. You may discontinue the use of ambulatory aids (cane, crutches, etc.) once your strength and confidence allow. 7. You may back end engineer the shower and let water strike your incision when you arrive home at least once daily. Do not take a tub bath, sit in a hot tub or go into a swimming pool until after your first recheck in the office. SPECIAL CARE INSTRUCTIONS: VERY IMPORTANT TO READ AND REVIEW A. Your surgical incision has been closed with a cosmetic suture under the skin that will dissolve in about 6 weeks. In 14 days, you can use a pair of clean scissors and cut the suture that is left outside of the skin at the ends of your incision. 1. The small skin tapes can be removed 7 days after surgery if they have not fallen off by that point. 2. You may keep the wound open to air as much as possible to promote healing after post-op day number 5 unless told otherwise by your doctor. 3. If you think the wound looks like it is becoming infected (redness or worsening drainage) and/or you are experiencing fever, chill or worsening back pain and muscle spasms, contact the office so that we may evaluate you as soon as possible. B. Complications are uncommon, but please contact us if you have any signs or symptoms of: 1. wound infection (fever higher than 102.5 degrees F, redness, separation of wound, drainage, or increasing pain from the incision) 2. blood clots in legs (pain, swelling, redness and warmth in legs) 3. urinary tract infection (fever higher than 102.5 degrees F, burning upon urination or increased frequency of urination) 4. nerve problems (inability to walk on your toes or heels, numbness, loss of bowel or bladder control) 5. any other symptoms that concern you C. Please call the office at if you have any concerns or questions about your operation or recovery. D. No smoking! Smoking drastically decreases the chance of a solid fusion. E. Do not take any anti-inflammatory medications (Indocin, Advil, Motrin, Aspirin, Naprosyn, etc.) as these may inhibit the chance of a solid fusion. Tylenol is okay to take for pain. MANAGING PAIN AFTER SPINAL SURGERY 1. Narcotic medication is intended for short-term use and will be provided for surgical pain. Surgical pain usually lasts for a period of 4-6 weeks. Narcotic medication includes Percocet, Vicodin, Darvocet, Tylenol #3 or Lortab. 2. Longer-term pain is more appropriately treated with non-narcotic medication such as Tylenol ES. 3. Muscle spasm is not appropriately treated with narcotics. Muscle relaxers such as Soma, Flexeril or Skelaxin can be used along with Tylenol ES. 4. Remember that we all live with some "aches and pains". This is not unusual or uncommon after an injury or as we get older. a. Back pain is expected and may include muscle spasms for 4 to 6 weeks after surgery. The pain should gradually improve. If the pain worsens for no apparent reason, please contact the office. b. Intermittent leg pain may also be experienced and should not be concerned about unless it worsens for no apparent reason. If so, please contact the office. 5. We will provide appropriate medication within the normal guidelines of their prescribed use. We will also be very cautious and aware of potential abuse and extended duration of patients' medication needs. a. Pain medications are for your comfort and to assist with sleep and rest so that the tissue can heal. They are not provided in order to return to normal activity and should not be used through the day. To do so or worsening pain at night can result from ongoing tissue damage and development of tolerance to the prescribed medicine. 6. Please allow 2-3 days to process refills. Prescriptions will not be mailed but must be picked up at the office. FOLLOW UP VISIT: Keep your scheduled follow-up appointment. Any questions, please call the office at . Current Hospital Diet Patient's current hospital diet: Regular Diet Discharge Diet Recommended Diet: Regular Diet Procedures Procedures Performed: L4-S1 Lumbar Laminectomy, Decompression, L4-S1 Posterolateral Fusion, L5-S1 Placement of Interbody Device, Application of Kerry, Bone Morphogenetic Protein Pending Studies Studies pending at discharge: no Medical Emergencies . Who to Call and When: Medical Emergencies: If at any time you feel your situation is an emergency, please call 911 immediately. . Non-Emergent Contact Non-Emergency issues call your: Primary Care Provider . "Provider Documentation" section prepared by Modesto Donovan. . VTE Core Measure Inpt VTE Proph given/why not?: Deidra Corea, KHADIJAH's
[2017-05-03 07:56] VITALS: BP 130/64; PULSE 86; TEMP 37; O2SAT 100
[2017-05-03 08:03] VITALS: O2SAT 100
[2017-05-03] MEDS: METOPROLOL SUCC 50MG EXT REL TAB PO SCH (08:20)
[2017-05-03] MEDS: LOSARTAN/HCTZ 50-12.5 EA TAB PO SCH (08:21)
[2017-05-03] MEDS: PANTOprazole SOD 40 MG TAB PO SCH (08:21)
[2017-05-03] MEDS: FEXOFENADINE HCL 180 MG TAB PO SCH (08:21)
[2017-05-03] MEDS: ACETAMINOPHEN 500 MG TAB PO PRN (12:22)
[2017-05-03 15:48] VITALS: BP 111/68; PULSE 65; TEMP 36.4; O2SAT 100
[2017-05-03 16:16] VITALS: BP 111/68; PULSE 65; TEMP 36.4; O2SAT 100
--- NOTE | 2017-05-03 21:00 | DISCHARGE SUMMARY ---
PRINCIPAL DIAGNOSIS: Spinal stenosis. HOSPITAL COURSE FOLLOWS: On May 01, the patient underwent lumbar decompression and fusion, tolerated this well and taken to the orthopedic floor postoperatively. Postop day #1, she was up and ambulatory, progressed to postop day #2. Pain well controlled. KAMALJIT drain decreased appropriately. Subsequently discharged home. Discharge orders and instructions found on the chart for further review.
== END 2017-05-03 17:04 | disposition home or self-care (01) | DRG 460 ==
LOC: C.ACU 08:11 → C.3E 10:15 → ENRESERV 14:03 → UNDOADMIN 14:50 → C.3E 14:50
PROVIDERS: ADMIT Orthopaedic Surgery Orthopaedic Surgery of the Spine; ATTEND Orthopaedic Surgery Orthopaedic Surgery of the Spine
PROC: 0SG30AJ Fusion of Lumbosacral Joint with Interbody Fusion Device, Posterior Approach, Anterior Column, Open Approach (ICD-10-PCS; principal; 2017-05-01 10:20)
PROC: 0SG0071 Fusion of Lumbar Vertebral Joint with Autologous Tissue Substitute, Posterior Approach, Posterior Column, Open Approach (ICD-10-PCS; principal; 2017-05-01 10:20)
PROC: 0ST40ZZ Resection of Lumbosacral Disc, Open Approach (ICD-10-PCS; principal; 2017-05-01 10:20)
PROC: 0SG1071 Fusion of 2 or more Lumbar Vertebral Joints with Autologous Tissue Substitute, Posterior Approach, Posterior Column, Open Approach (ICD-10-PCS; principal; 2017-05-01 10:20)
DX: M48.06 Spinal stenosis, lumbar region (principal); M48.07 Spinal stenosis, lumbosacral region; I10 Essential (primary) hypertension; J45.909 Unspecified asthma, uncomplicated; Z79.899 Other long term (current) drug therapy; Z79.52 Long term (current) use of systemic steroids

== ENCOUNTER → 2017-06-02 | Outpatient (CLI) | payer BC ==
[~2017-06-02] MED LIST changes: -CEFAZOLIN 2000 MG/60 ML D5W 60 ML IV SCH; -LACTATED RINGER'S 1000ML IV SCH; -NABU500T3 PO; -SCOPOLAMINE 1.5 MG TDSY TD SCH; +ULT50X PO
[2017-06-02 13:01] LABS: HEMATOCRIT 40.2 % (37-47); MEAN CELL VOLUME 86.8 fL (80-100); MEAN CORPUSCULAR HEMOGLOBIN 28.1 pg (25-34); MEAN CORPUSCULAR HGB CONC 32.3 g/dl (32-36); MEAN PLATELET VOLUME 9.2 fL (7.4-10.4); PLATELET COUNT 267 K/uL (130-400); RED BLOOD COUNT 4.63 M/uL (4.2-5.4); WHITE BLOOD COUNT 5.24 K/uL (4.8-10.8)
[2017-06-02 13:35] LABS: ALT/SGPT 49 U/L (12-78); AST/SGOT 19 U/L (15-37); BLOOD UREA NITROGEN 11 mg/dl (7-18); BUN/CREATININE RATIO 13.9 (10-20); CALCIUM 9.7 mg/dl (8.5-10.1); CARBON DIOXIDE 29 mmol/L (21-32); CHLORIDE 105 mmol/L (98-107); CHOLESTEROL 185 mg/dl (0-200); CREATININE 0.77 mg/dl (0.60-1.20); GLUCOSE,FASTING 100 mg/dl (70-99); POTASSIUM 4.1 mmol/L (3.5-5.1); SODIUM 140 mmol/L (136-145); TRIGLYCERIDES 132 mg/dl (0-150); VERY LOW DENSITY LIPOPROT CALC 26 mg/dl
[2017-06-02 13:40] LABS: ALB/GLOB RATIO 1.1 (0.9-2); ALKALINE PHOSPHATASE 138 U/L (45-117); CHOLESTEROL/HDL RATIO 3.2; HDL CHOLESTEROL 58 mg/dl; LDL CHOLESTEROL CALCULATED 101 mg/dl
[2017-06-02 13:46] LABS: MAGNESIUM 2.3 mg/dl (1.8-2.4); THYROID STIMULATING HORMONE 1.54 uIu/ml (0.300-4.500)
[2017-06-03 06:55] LABS: ESTIMATED AVERAGE GLUCOSE 103 mg/dl; HA1C FLAG Normal (Normal)
== END | disposition home or self-care (01) ==
LOC: C.LABPBG 08:30
PROVIDERS: ATTEND Physician Assistant
DX: Z82.49 Family history of ischemic heart disease and other diseases of the circulatory system (principal); I10 Essential (primary) hypertension; I34.1 Nonrheumatic mitral (valve) prolapse; R01.1 Cardiac murmur, unspecified; Z79.899 Other long term (current) drug therapy

== ENCOUNTER 2019-04-19 10:44 | Inpatient (IN) ==
--- NOTE | 2019-03-13 10:07 | PAT Medication Instructions ---
Medication Instructions Date of Service March 13, 2019 Home Medications albuterol sulfate 1 puff INHALATION Q6H PRN [id number]-oxhmmba-[id number] 1 cap PO DAILY PRN calcium carbonate-vitamin D3 1 tab PO BID cyclobenzaprine 5 mg PO DAILY PRN duloxetine [Cymbalta] 30 mg PO HS gabapentin 300 mg PO TID hydroxychloroquine [Plaquenil] 200 mg PO BID lorazepam 0.5 mg PO TID PRN losartan-hydrochlorothiazide 1 tab PO QAM melatonin 3 mg PO HS metoprolol succinate 50 mg PO QAM montelukast [Singulair] 10 mg PO QAM nabumetone 750 mg PO BID omega 7-qrl-bvj-fish oil [Fish Oil] 1 cap PO BID omeprazole 40 mg PO QAM psyllium husk [Fiber (psyllium 0.52 g PO QPM tramadol 50 mg PO Q6H PRN ASK your surgeon for instructions cozxexzkji-plzgvuh-gqzbbrql 1 cap PO DAILY PRN nabumetone 750 mg PO BID ASK your prescriber and surgeon hydroxychloroquine [Plaquenil] 200 mg PO BID STOP taking 2 weeks before surgery (or as soon as possible if surgery is within 2 weeks) omega 2-htt-jjv-fish oil [Fish Oil] 1 cap PO BID DO NOT take the morning of surgery calcium carbonate-vitamin D3 1 tab PO BID cyclobenzaprine 5 mg PO DAILY PRN losartan-hydrochlorothiazide 1 tab PO QAM montelukast [Singulair] 10 mg PO QAM Take morning of surgery With a small sip of water, OTHERWISE NOTHING TO EAT OR DRINK AFTER MIDNIGHT: albuterol sulfate 1 puff INHALATION Q6H PRN (use if needed; please bring with you to hospital day of surgery if possible) gabapentin 300 mg PO TID lorazepam 0.5 mg PO TID PRN (if needed) metoprolol succinate 50 mg PO QAM omeprazole 40 mg PO QAM tramadol 50 mg PO Q6H PRN (okay to take up to 4 hours prior to surgery if needed) Take evening before surgery albuterol sulfate 1 puff INHALATION Q6H PRN (if needed) calcium carbonate-vitamin D3 1 tab PO BID cyclobenzaprine 5 mg PO DAILY PRN (if needed) duloxetine [Cymbalta] 30 mg PO HS gabapentin 300 mg PO TID lorazepam 0.5 mg PO TID PRN (if needed) melatonin 3 mg PO HS psyllium husk [Fiber (psyllium 0.52 g PO QPM tramadol 50 mg PO Q6H PRN (if needed) Other Notes If you have any questions please call us at [phone] or [phone] or [phone] or [phone]
--- NOTE | 2019-03-13 13:15 | Anesthesiology Consultation ---
Date of Service March 13, 2019 Assessment & Plan (1) Encounter for pre-operative examination: - Patient was scheduled to have ACDF with Dr. Donovan 3 weeks prior to this surgery, but due to positioning concerns, the surgery with Dr. Donovan has now been rescheduled for July 2019. Chart Review Chart Review: Acceptable Risk for Surgery and Patient seen in Pre Admission Testing Consults Requested none Teaching & Discussion Pre-Anesthesia Teaching/Discussion Notes: Instructed NPO after midnight before surgery, except medications with 15 cc of water. Medication instructions provided according to the PAT guidelines. History Surgery Operation Date: 04/19/19 07:00 Proposed Procedures p Left Total Knee Arthroplasty - Oliver Wells, Height/Weight Height: 5 ft 8 in Weight: 93.7 kg Allergies Allergy/AdvReac Type Severity Reaction Status Date / Time grass pollen-perennial rye, Allergy Unknown SNEEZING, Verified 03/06/19 10:13 standar ITCHY mold Allergy Unknown SNEEZING,IT Verified 03/06/19 10:13 HANANE Penicillins Allergy Unknown RASH Verified 03/06/19 10:13 codeine AdvReac Unknown N/V Verified 03/06/19 10:13 erythromycin base AdvReac Unknown SEVERE Verified 03/06/19 10:13 STOMACH CRAMPS, DIARRHEA, NAUSEA morphine AdvReac Unknown N/V Verified 03/06/19 10:13 Dust Allergy Unknown SNEEZING,RUNNY Uncoded 03/06/19 10:13 NOSE ITCHY Medications Home Medications Medication Instructions Recorded Confirmed Last Taken albuterol sulfate 1 puff INHALATION Q6H PRN 03/06/19 03/06/19 Unknown bgktgetszp-gzpraem-jrycxefn 1 cap PO DAILY PRN 03/06/19 03/06/19 Unknown [Fiorinal] calcium carbonate-vitamin D3 1 tab PO BID 03/06/19 03/06/19 Unknown [Calcium 600 + D(3)] cyclobenzaprine 5 mg PO DAILY PRN 03/06/19 03/06/19 Unknown duloxetine [Cymbalta] 30 mg PO HS 03/06/19 03/06/19 Unknown gabapentin 300 mg PO TID 03/06/19 03/06/19 Unknown hydroxychloroquine [Plaquenil] 200 mg PO BID 03/06/19 03/06/19 Unknown lorazepam 0.5 mg PO TID PRN 03/06/19 03/06/19 Unknown losartan-hydrochlorothiazide 1 tab PO QAM 03/06/19 03/06/19 Unknown [Hyzaar] melatonin 3 mg PO HS 03/06/19 03/06/19 Unknown metoprolol succinate 50 mg PO QAM 03/06/19 03/06/19 Unknown montelukast [Singulair] 10 mg PO QAM 03/06/19 03/06/19 Unknown nabumetone 750 mg PO BID 03/06/19 03/06/19 Unknown omega 5-gpp-gep-fish oil [Fish Oil] 1 cap PO BID 03/06/19 03/06/19 Unknown omeprazole 40 mg PO QAM 03/06/19 03/06/19 Unknown psyllium husk [Fiber (psyllium 0.52 g PO QPM 03/06/19 03/06/19 Unknown husk)] tramadol 50 mg PO Q6H PRN 03/06/19 03/06/19 Unknown adalimumab [Humira] See Rx Instructions .ROUTE .COMPLEX 03/13/19 03/13/19 Unknown Past Medical History Medical History Anxiety Asthma WELL CONTROLLED. RARELY USES INHALER. Bronchitis H/O Cancer RIGHT BREAST CANCER (MAY 2018) Chronic neck pain Degenerative disc disease Depression Diverticular disease GERD (gastroesophageal reflux disease) H/O Sjogren's disease Hypertension Migraine Non-alcoholic fatty liver disease Obesity PAT (paroxysmal atrial tachycardia) TAKES METOPROLOL. NO PROBLEMS SINCE ON MEDICATIONS Rheumatoid arthritis Exercise / Class Metabolic Activity II 4-5 Yardwork/Stairs/Walk up hill (Minimal currently due to knee and neck pain. Gardening, feeds chickens, walks for mail, cleans house. Able to climb stairs up, uses stair lift going down. Denies CP or SOB. ) Past Family History Family History Uncle Family hx of colon cancer Past Surgical History Surgical History Fusion of spine C4-C7 FUSION. FULL ROM 03/30/15 - MAC #3, ETT #7.0, Grade 1 View Fusion of spine L4-S1 05/01/17 - MAC #3, ETT #7.0, Grade 1 View H/O shoulder surgery RIGHT DISTAL CLAVICLE SURGERY 12/29/16 - LMA #4 History of arthroscopy RIGHT SHOULDER History of cholecystectomy LAP History of colonoscopy History of esophagogastroduodenoscopy (EGD) History of laminectomy LUMBAR History of mastectomy BILATERAL History of nasal septoplasty S/P EDDA-BSO Past Anesthesia History No Hx of Anesthesia Complications and No Family Hx of Anesthesia Complications History of PONV No Hx of Motion Sickness and History of PONV (Many years ago, nothing recent) Social History Smoking Status: Never smoker Do You Dip or Chew Tobacco: No Hx Alcohol Use: Yes Alcohol type: wine alcohol intake frequency: holidays/special occasions only Hx Substance Use: No substance use type: does not use Review of Systems Patient denies chest pain, shortness of breath, dyspnea on exertion, cough, wheezing, palpitations. +Joint Pain (Knees, neck, back, shoulder, right ankle) +Acid reflux (Controlled with medications) Physical Exam Vital Signs BP: 131/79 P: 78 R: 16 T: 98.5 SPO2: 100% on RA ENMT Mouth: + dental restorations Thyromental Distance: > or= 3.5 Finger Breadths (3.5) Mallampati Class: III Neck normal visual inspection and trachea midline; neck extension not limited (However, patient is scheduled to have neck surgery prior to this surgery) Respiratory normal respiratory effort Auscultation: lungs clear to auscultation bilaterally Cardiovascular Rate/Rhythm: regular rate and regular rhythm Heart Sounds: + murmur (1/6) Vessels: no carotid bruit Musculoskeletal Spine: normal cervical ROM Neurologic moves all extremities Psychiatric Orientation: alert and oriented x 3 Testing Electrocardiogram Date: 03/13/19 Findings: + NSR @ (77) Moderate voltage criteria for LVH, may be normal variant When compared with ECG of 12/06/16, No significant change was noted. Chest X-Ray Date: 03/13/19 Findings: + NAD FINDINGS: The bones soft tissues and hemidiaphragms are normal. The cardiomediastinal silhouette is normal. The lungs are clear. The pulmonary vasculature is normal. IMPRESSION: Negative chest. Echocardiogram Date: 06/13/18 EF: 55% FINAL IMPRESSION: 1. Normal left ventricular wall motion and EF estimated in the range of 55% 2. Mild sclerotic changes involving both the aortic and mitral valve leaflets. 3. Trace to at most mild mitral and tricuspid valvular insufficiency. 4. Minimal to small amount of pericardial fluid identified. Stress Test Date: 12/21/16 Type: nuclear No significant ST-T wave changes associated with Lexiscan infusion. FINAL IMPRESSION: 1. Normal myocardial perfusion SPECT images without evidence for pharmacologically induced ischemia. 2. Normal left ventricular wall motion and thickening. 3. Normal left ventricular EF post stress at 73%. Laboratory Results 03/13/19 14:05 03/13/19 14:05 Blood Type O Positive 03/13/19 14:05 Antibody Screen NEGATIVE 03/13/19 14:05 PT 10.5 Seconds (9.0-12.0) 03/13/19 14:05 INR 1.0 (0.9-1.1) 03/13/19 14:05 APTT 25.6 Seconds (21.0-31.0) 03/13/19 14:05 Laboratory Tests 03/13/19 Unknown Urine Color Yellow Urine Appearance Clear Urine pH 5.5 Ur Specific [place] 1.014 Urine Protein Negative Urine Glucose (UA) Negative Urine Ketones Negative Urine Blood Negative Urine Nitrite Negative Urine Bilirubin Negative Urine Urobilinogen Negative Ur Leukocyte Esterase Negative
--- NOTE | 2019-03-13 14:38 | XRay Report ---
XR chest Pre-admission PA/Lat CLINICAL HISTORY: pat preoperative evaluation COMPARISON STUDY: 04/24/2017 FINDINGS: The bones soft tissues and hemidiaphragms are normal. The cardiomediastinal silhouette is n ormal. The lungs are clear. The pulmonary vasculature is normal. IMPRESSION: Negative chest. The above report was generated using voice recognition software. It may contain grammatical, syntax or spelling errors. Electronically signed by: Juan Luis Stovall M.D. 03/13/2019 2:37 PM
[2019-03-13 15:13] LABS: Basophils # (auto) 0.04 K/uL (0-0.2); Basophils % (auto) 0.6 %; Eosinophils % (auto) 4.7 %; Hematocrit (blood only) 40.1 % (37-47); Hemoglobin 13.9 g/dL (12.0-16.0); Immature Granulocytes # (auto) 0.01 K/uL (0.00-0.02); Immature Granulocytes % (auto) 0.2 %; Lymphocytes # (auto) 1.75 K/uL (1.2-3.4); Lymphocytes % (auto) 27.2 %; Mean Corpuscular Hgb Conc 34.7 g/dL (32-36); Mean Corpuscular Volume 83.5 fL (80-100); Monocytes # (auto) 0.53 K/uL (0.11-0.59); Monocytes % (auto) 8.2 %; Neutrophils # (auto) 3.81 K/uL (1.4-6.5); Neutrophils % (auto) 59.1 %; Platelet Count 231 K/uL (130-400); RDW Coefficient of Variation 13.1 % (11.5-14.5); RDW Standard Deviation 39.4 fL (36.4-46.3); White Blood Count 6.44 K/uL (4.8-10.8)
[2019-03-13 15:20] LABS: BUN Creatinine Ratio 14.5 (10-20); Calcium 9.5 mg/dl (8.5-10.1); Creatinine Clr Calc Pharmacy 105.8 ml/min; Est GFR (African American) 109.7; Est GFR (Non-African American) 94.7; Potassium 3.6 mmol/L (3.5-5.1)
[2019-03-13 15:27] LABS: Partial Thromboplastin Ratio 0.9; Partial Thromboplastin Time 25.6 Seconds (21.0-31.0); Prothrombin Time 10.5 Seconds (9.0-12.0)
--- NOTE | 2019-04-17 07:38 | History & Physical Report ---
Date of Service April 17, 2019 Assessment & Plan (1) Rheumatoid arthritis involving left knee: We will proceed with a left total knee arthroplasty. Postoperatively she will be started on aspirin for DVT prophylaxis. She will be kept overnight in the hospital for postop medical management. She plans to use energy physical therapy upon discharge. Present on Admission?: Yes History of Present Illness Chief Complaint: Rheumatoid arthritis of the left knee Primary Care Provider: Izzy Mckinley MD June is a pleasant 63-year-old female who is been dealing with chronic increasing left knee pain. X-rays and clinical examination have been diagnostic for rheumatoid arthritis of the left knee. After failing conservative treatment including multiple injections, she has elected proceed with a left total knee arthroplasty. Allergies Allergy/AdvReac Type Severity Reaction Status Date / Time grass pollen-perennial rye, Allergy Unknown SNEEZING, Verified 04/16/19 12:20 standar ITCHY mold Allergy Unknown SNEEZING,IT Verified 04/16/19 12:20 HANANE Penicillins Allergy Unknown RASH Verified 04/16/19 12:20 codeine AdvReac Unknown N/V Verified 04/16/19 12:20 erythromycin base AdvReac Unknown SEVERE Verified 04/16/19 12:20 STOMACH CRAMPS, DIARRHEA, NAUSEA morphine AdvReac Unknown N/V Verified 04/16/19 12:20 Dust Allergy Unknown SNEEZING,RUNNY Uncoded 04/16/19 12:20 NOSE ITCHY Home Medications Home Medications Medication Instructions Recorded Confirmed Type albuterol sulfate 1 puff INHALATION Q6H PRN 03/06/19 04/16/19 History kpunkarzkq-uvapyou-lemsiyfl 1 cap PO DAILY PRN 03/06/19 04/16/19 History [Fiorinal] calcium carbonate-vitamin D3 1 tab PO BID 03/06/19 04/16/19 History [Calcium 600 + D(3)] cyclobenzaprine 5 mg PO DAILY PRN 03/06/19 04/16/19 History duloxetine [Cymbalta] 30 mg PO HS 03/06/19 04/16/19 History gabapentin 300 mg PO TID 03/06/19 04/16/19 History hydroxychloroquine [Plaquenil] 200 mg PO BID 03/06/19 04/16/19 History lorazepam 0.5 mg PO TID PRN 03/06/19 04/16/19 History losartan-hydrochlorothiazide 1 tab PO QAM 03/06/19 04/16/19 History [Hyzaar] melatonin 3 mg PO HS 03/06/19 04/16/19 History metoprolol succinate 50 mg PO QAM 03/06/19 04/16/19 History montelukast [Singulair] 10 mg PO QAM 03/06/19 04/16/19 History nabumetone 750 mg PO BID 03/06/19 04/16/19 History omega 5-jty-ynw-fish oil [Fish Oil] 1 cap PO BID 03/06/19 04/16/19 History omeprazole 40 mg PO QAM 03/06/19 04/16/19 History psyllium husk [Fiber (psyllium 0.52 g PO QPM 03/06/19 04/16/19 History husk)] tramadol 50 mg PO Q6H PRN 03/06/19 04/16/19 History adalimumab [Humira] See Rx Instructions .ROUTE .COMPLEX 03/13/19 04/16/19 History Past Med/Surg History Medical History Anxiety Asthma WELL CONTROLLED. RARELY USES INHALER. Bronchitis H/O Cancer RIGHT BREAST CANCER (MAY 2018) Chronic neck pain Degenerative disc disease Depression Diverticular disease GERD (gastroesophageal reflux disease) H/O Sjogren's disease Hypertension Migraine Nausea and vomiting after administration of anesthetic agent USES SCOPALAMINE PATCH AT HOSPITAL Non-alcoholic fatty liver disease Obesity PAT (paroxysmal atrial tachycardia) TAKES METOPROLOL. NO PROBLEMS SINCE ON MEDICATIONS Rheumatoid arthritis Surgical History Fusion of spine C4-C7 FUSION. 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 Required: No Beliefs That Will Affect Care: None Current Living Situation: Spouse and Family Current Living Situation Comment: SON, FATHER AND Other Information That Helps Us Care for You: No Feels Safe at Home: Yes Safety Concerns: Feels Safe At This Time Smoking Status: Never smoker Do You Dip or Chew Tobacco: No Second Hand Exposu re: No Tobacco Cessation Education Requested by Patient: No Hx Alcohol Use: Yes Alcohol type: wine Hx Substance Use: No Review of Systems All systems reviewed & are unremarkable except as noted in HPI & below Physical Exam Constitutional: WD/WN, vitals as above Eyes: PERRL, conjunctivae normal, anicteric sclerae ENMT: external ear and nose normal, oropharynx normal Neck: trachea midline, no thyromegaly Respiratory: normal respiratory effort Cardiovascular: RRR, no murmur, no edema Gastrointestinal (Abdomen): normal bowel sounds, soft, nontender, no hepatosplenomegaly Musculoskeletal: On physical examination of the left knee there is a trace effusion. There is near full range of motion and no evidence of instability. There is significant tenderness palpation along the medial and lateral joint lines and over the distal femoral condyles. Psychiatric: A+Ox3, euthymic affect Results & Data Diagnostic Findings Radiographs of the left knee demonstrate advanced osteoarthritis with joint space narrowing osteophyte formation and awud-lo-emhm articulation.
[~2019-04-19 10:44] MED LIST changes: +ACETAMINOPHEN 500 MG TAB PO SCH; -ALBUAER INH; +BUPIVACAINE 0.5 % 5 MG/1 ML PF 10ML VIAL ONE; -BUTACAP36 PO; -CALC600T9 PO; +CEFAZOLIN 2000MG 2,000 MG/15 ML SYR IV SCH; -CYM/30 PO; +FAMOTIDINE 20 MG TAB PO SCH; -FEXO1TAB49 PO; -GABA-113 PO; +GABAPENTIN 300 MG x 2 PO SCH; -HYDR0.5T PO; -HYZ/50125 PO; +LR 500ML BOLUS, THEN 15ML/HR IV SCH; +LR 60ML/HR IV SCH; -METO50TA7 PO; -OMEG10007 PO; -OMEP40CA PO; -PRED-301 PO; -PSYLLIUM PO; +ROPIVACAINE 0.5% 5 MG/ML 30 ML VIAL ONE; +ROPIVACAINE 0.5% HCL/PF 150 MG, BUPIVACAINE 0.5% MPF 30 ML, EPINEPHrine 30MG/30ML (OR U... INFIL SCH; -RSTOPS OP; -TRAM-10 PO; +TRANEXAMIC ACID 1,000 MG **IV Intra-op IV SCH; +TRANEXAMIC ACID 1,000 MG **IV Pre-op IV SCH; -ULT50X PO
--- OUTSIDE RECORDS SUMMARY | 2019-04-19 10:51 | External Medical Summary | Continuity of Care Document ---
:1955 Author Name Unruly Roldan, Provider Address Unavailable Unavailable , Care Team Providers Name Role Phone Unavailable Unavailable Unavailable Ailyn Roldan, Isauro Unavailable [email or web address] GOMEZ, [email or web address] [email or web address] Ailyn Roldan, Isauro Unavailable Unavailable VANDANA CLEMENTS Unavailable Unavailable Shobha PETERS Unavailable Unavailable Sam PACHECO Unavailable Unavailable NNEKA Unavailable Unavailable Shay GOMEZ Unavailable [email or web address] Unavailable Unavailable Unavailable Assessments Assessed Problems:Encounter for preventive health examination Problems Bilateral carpal tunnel syndrome (354.0) (G56.03) Depression (311) (F32.9) Arthritis (716.90) (M19.90) Asthma (493.90) (J45.909) Cervical radiculopathy (723.4) (M54.12) Chronic pain syndrome (338.4) (G89.4) Postoperative scar (709.2) (L90.5) Status post mastectomy (V45.71) (Z90.10) Headache (784.0) (R51) Spondylosis, unspecified (721.90) (M47.9) Fatty liver (571.8) (K76.0) Sjogren's syndrome (710.2) (M35.00) Rheumatoid arthritis (714.0) (M06.9) Hypertension (401.9) (I10) Anxiety (300.00) (F41.9) Migraine headache (346.90) (G43.909) Vision problem (V41.0) (H54.7) Allergies and Adverse Reactions Codeine Derivatives (Allergy) Reaction: Nausea, Vomiting Erythromycin Derivatives (Allergy) React ion: Nausea, Vomiting, Diarrhea, Abdominal pain Morphine Derivatives (Allergy) Reaction: Vomiting, Nausea Penicillins (Allergy) Reaction: Rash Medications Gabapentin 300 MG Oral Capsule; TAKE ONE CAPSULE AT BEDTIME , M.DSupa Start: 13-Apr-2017 Quantity: 270 Refills: 3 Fish Oil 1200 MG Oral Capsule; Take one tablet twice daily , M.D. Start: 13-Apr-2017 Refills: 0 Calcium 600-D 600-400 MG-UNIT Oral Tablet; Take one tablet t wice daily , M.D. Start: 13-Apr-2017 Refills: 0 EQ Fiber Therapy 0.52 GM Oral Capsule; Take one capsule tala y M.DSupa Start: 13-Apr-2017 Refills: 0 traMADol HCl - 50 MG Oral Tablet; TAKE 1 TABLET EVERY 4 TO 6 HOURS NEEDED FOR PAIN. , M.D. Start: 13-Apr-2017 Quantity: 30 Refills: 0 Metoprolol Succinate ER 50 MG Oral Table t Extended Release 24 Hour; Take 1 tablet daily , M.D. Start: 12-Apr-2017 Quantity: 30 Refills: 5 Nabumetone 750 MG Oral Tablet; TAKE 1 TABLET TWICE DAILY AFT ER MEALS. , M.D. Start: 12-Apr-2017 Refills: 0 Plaquenil 200 MG Oral Tablet; TAKE 1 TABLET TWICE DAILY. , M .D. Start: 12-Apr-2017 Refills: 0 Cymbalta 30 MG Oral Capsule Delayed Rele ase Particles; TAKE 1 CAPSULE AT BEDTIME , M.D. Start: 12-Apr-2017 Refills: 0 Hyzaar 50-12.5 MG Oral Tablet; TAKE 1/2 TABLET TWICE DAILY. , M.D. Start: 13-Apr-2017 Refills: 0 Gdgffputmm-Liszzys-Vkpopxwq 50-325-40 MG Oral Capsule; TAKE 1 CAPSULE EVERY 4 HOURS NEEDED. JASON Sams Start: 13-Apr-2017 Quantity: 30 Refills: 0 Proventil HFA 108 (90 Base) MCG/ACT Inha lation Aerosol Solution; INHALE TWO PUFFS BY MOUTH EVERY FOUR HOURS NEEDED Jamar Robertson Start: Refills: 0 6.7 GM Inhaler Omeprazole 40 MG Oral Capsule Delayed Release; TAKE 1 CAPSULE Daily Jamar Robertson Start: 12-Apr-2017 Quantity: 90 Refills: 1 Procedures History of Cholecystectomy Status: Compl eted History of Cervical Vertebral Fusion Sta tus: Completed History of Arthroscopy Shoulder Status: Completed History of Laminectomy Lumbar Status: Co mpleted History of Nasal Septal Deviation Repair Status: Completed History of Complete Colonoscopy Status: Completed History of Total Abdominal Hysterectomy Status: Completed History of Dilation And Curettage Status : Completed History of Laparoscopy (Diagnostic) Stat us: Completed Immunizations Hepatitis B On: 28-Jul-1984 Hepatitis B On: 26-Sep-1984 Hepatitis B On: 19-Jan-1985 Prevnar 13 Intramuscular Suspension On: Nov-2009 Pneumococcal polysaccharide vaccine, 23 valent On: Nov-2009 Varicella On: Jul-2011 MMR On: Jul-2011 Hepatitis B On: 28-Jul-2011 Hepatitis B On: 26-Sep-2011 Hepatitis B On: 20-Jan-2012 Influenza On: 21-Jun-2014 Tdap (Adacel) On: 08-Aug-2014 Pneumococcal polysaccharide vaccine, 23 valent On: 12-Aug-20 15 PPD On: 13-Jun-2016 Influenza On: 26-Aug-2016 Zostavax 89453 UNT/0.65ML Subcutaneous Solution Reconstitute d On: 13-Mar-2017 Family History Mother Family history of Anxiety (300.00) (F41.9) Status: Active Family history of gallbladder disease (V18.59) (Z83.79) Stat us: Active Family history of cardiac disorder (V17.49) (Z82.49) Status: Active Family history of hypertension (V17.49) (Z82.49) Status: Act juli Family history of malignant neoplasm of breast (V16.3) (Z80. 3) Status: Active Family history of malignant neoplasm of cervix (V16.49) (Z80 .49) Status: Active Father Family history of cardiac disorder (V17.49) (Z82.49) Status: Active Family history of hypertension (V17.49) (Z82.49) Status: Act juli Family history of kidney disease (V18.69) (Z84.1) Status: Ac tive Family history of kidney stones (V18.69) (Z84.1) Status: Act juli Family history of lung disease (V19.8) (Z83.6) Status: Activ e Family history of myocardial infarction (V17.3) (Z82.49) Sta tus: Active Sister Family history of hypertension (V17.49) (Z82.49) Status: Act juli Family history of lung disease (V19.8) (Z83.6) Status: Activ e Family history of malignant neoplasm (V16.9) (Z80.9) Status: Active uncle Family history of Cancer, colon (153.9) (C18.9) Status: Acti ve cousin Family history of Cancer, colon (153.9) (C18.9) Status: Acti ve Social History - Smoking Status Never smoker Plan of Treatment Planned Observations Planned Goals not documented Results No Known Results Results not documented Encounters Appointment; Alejandra Garza M.D. 23-Oct-2018 15:30 Encounter Diagnosis: Problem not documented Appointment; Isauro Robertson M.D. 16-Apr-2018 15:45 Encounter Diagnosis: Problem not documented Appointment; Isauro Robertson M.D. 07-Aug-2017 15:30 Encounter Diagnosis: Problem not documented Appointment; Sarah Day PA-C 19-Apr-2017 14:00 Encounter Diagnosis: Problem not documented
--- NOTE | 2019-04-19 11:13 | History & Physical Bridge Note ---
Date of Service April 19, 2019 History & Physical Bridge Note I have examined the patient, reviewed the History & Physical and in the interval since the performance of the History & Physical I have noted the following changes of clinical significance: no changes noted
[2019-04-19] MEDS ORDERED: MIDAZOLAM HCL 1 MG/ML 2ML VIAL ONE ×3 (12:17→13:16)
[2019-04-19] MEDS ORDERED: fentaNYL citrate 100 MCG/2 ML VIAL ONE (12:17)
[2019-04-19] MEDS ORDERED: ORTHO JOINT ANESTHETIC ONE (13:11)
[2019-04-19] MEDS ORDERED: POVIDONE-IODINE OP SOLN 30 ML BTL ONE (13:11)
--- NOTE | 2019-04-19 13:42 | Anesthesiology Consultation ---
Date of Service April 19, 2019 Assessment & Plan Chart Review Chart Review: Acceptable Risk for Surgery and Patient NOT seen in Pre Admission Testing Consults Requested none ASA ASA3 History Surgery Operation Date: 04/19/19 12:55 Proposed Procedures p Left Total Knee Arthroplasty - Oliver Wells, Height/Weight Height: 5 ft 8 in Weight: 94.347 kg Allergies Allergy/AdvReac Type Severity Reaction Status Date / Time grass pollen-perennial rye, Allergy Unknown SNEEZING, Verified 04/19/19 11:20 standar ITCHY mold Allergy Unknown SNEEZING,IT Verified 04/19/19 11:20 HANANE Penicillins Allergy Unknown RASH Verified 04/19/19 11:20 codeine AdvReac Unknown N/V Verified 04/19/19 11:20 erythromycin base AdvReac Unknown SEVERE Verified 04/19/19 11:20 STOMACH CRAMPS, DIARRHEA, NAUSEA morphine AdvReac Unknown N/V Verified 04/19/19 11:20 Dust Allergy Unknown SNEEZING,RUNNY Uncoded 04/16/19 12:20 NOSE ITCHY Medications Home Medications Medication Instructions Recorded Confirmed Last Taken albuterol sulfate 1 puff INHALATION Q6H PRN 03/06/19 04/19/19 Unknown blbpwemhga-poyzird-fgseyvxu 1 cap PO DAILY PRN 03/06/19 04/19/19 04/12/19 08:00 [Fiorinal] calcium carbonate-vitamin D3 1 tab PO BID 03/06/19 04/19/19 04/18/19 18:00 [Calcium 600 + D(3)] cyclobenzaprine 5 mg PO DAILY PRN 03/06/19 04/19/19 04/18/19 22:00 duloxetine [Cymbalta] 30 mg PO HS 03/06/19 04/19/19 04/18/19 22:00 gabapentin 300 mg PO TID 03/06/19 04/19/19 04/19/19 07:30 hydroxychloroquine [Plaquenil] 200 mg PO BID 03/06/19 04/19/19 04/19/19 07:30 lorazepam 0.5 mg PO TID PRN 03/06/19 04/19/19 04/19/19 07:30 losartan-hydrochlorothiazide 1 tab PO QAM 03/06/19 04/19/19 04/18/19 08:00 [Hyzaar] melatonin 3 mg PO HS 03/06/19 04/19/19 04/18/19 22:00 metoprolol succinate 50 mg PO QAM 03/06/19 04/19/19 04/19/19 07:30 montelukast [Singulair] 10 mg PO QAM 03/06/19 04/19/19 04/18/19 08:00 nabumetone 750 mg PO BID 03/06/19 04/19/19 04/05/19 08:00 omega 7-jja-hny-fish oil [Fish Oil] 1 cap PO BID 03/06/19 04/19/19 04/05/19 08:00 omeprazole 40 mg PO QAM 03/06/19 04/19/19 04/19/19 07:30 psyllium husk [Fiber (psyllium 0.52 g PO QPM 03/06/19 04/19/19 04/18/19 18:00 husk)] tramadol 50 mg PO Q6H PRN 03/06/19 04/19/19 04/19/19 07:30 adalimumab [Humira] See Rx Instructions .ROUTE .COMPLEX 03/13/19 04/19/19 01/11/19 08:00 Active Medications Generic Name Dose Route Start Last Admin Trade Name Jersonq PRN Reason Stop Dose Admin Acetaminophen 1,000 mg 04/19/19 06:00 04/19/19 11:44 Tylenol PO 04/19/19 18:00 1,000 mg PREOP BRUCE Administration Famotidine 20 mg 04/19/19 06:00 04/19/19 11:44 Pepcid PO 04/19/19 18:00 20 mg PREOP BRUCE Administration Gabapentin 600 mg 04/19/19 06:00 04/19/19 11:44 Neurontin PO 04/19/19 18:00 600 mg PREOP BRUCE Administration Lactated Ringer's 1,000 mls @ 15 mls/hr 04/19/19 06:00 04/19/19 11:44 Lr IV 04/19/19 18:00 15 mls/hr .Q24H BRUCE Administration Lactated Ringer's 1,000 mls @ 60 mls/hr 04/19/19 06:00 04/19/19 12:18 Lr IV 04/19/19 22:39 Not Given .[id number] BRUCE NPO Date Last Intake of Fluids: 04/19/19 Time Last Intake of Fluids: 07:30 Last Intake of Fluids Comment: sip with meds Date Last Intake of Solids: 04/18/19 Time Last Intake of Solids: 22:00 Past Medical History Medical History Nausea and vomiting after administration of anesthetic agent USES SCOPALAMINE PATCH AT HOSPITAL Anxiety Asthma WELL CONTROLLED. RARELY USES INHALER. Bronchitis H/O Cancer RIGHT BREAST CANCER (MAY 2018) Chronic neck pain Degenerative disc disease Depression Diverticular disease GERD (gastroesophageal reflux disease) H/O Sjogren's disease Hypertension Migraine Non-alcoholic fatty liver disease Obesity PAT (paroxysmal atrial tachycardia) TAKES METOPROLOL. NO PROBLEMS SINCE ON MEDICATIONS Rheumatoid arthritis Past Family History Family History Uncle Family hx of colon cancer Past Surgical History Surgical History S/P scar revision MASTECTOMY SCAR REVISION 03/2019 Fusion of spine C4-C7 FUSION. FULL ROM 03/30/15 - MAC #3, ETT #7.0, Grade 1 View Fusion of spine L4-S1 05/01/17 - MAC #3, ETT #7.0, Grade 1 View H/O shoulder surgery RIGHT DISTAL CLAVICLE SURGERY 12/29/16 - LMA #4 History of arthroscopy RIGHT SHOULDER History of cholecystectomy LAP History of colonoscopy History of esophagogastroduodenoscopy (EGD) History of laminectomy LUMBAR History of mastectomy BILATERAL History of nasal septoplasty S/P EDDA-BSO Social History Smoking Status: Never smoker Do You Dip or Chew Tobacco: No Hx Alcohol Use: Yes Alcohol type: wine alcohol intake frequency: holidays/special occasions only Hx Substance Use: No substance use type: does not use Physical Exam Vital Signs Last Vital Signs Temp 37.1 C 04/19/19 11:14 Pulse 90 04/19/19 11:14 Resp 18 04/19/19 11:14 BP 150/75 H 04/19/19 11:14 Pulse Ox 98 04/19/19 11:14 Testing Electrocardiogram Date: 03/13/19 Findings: + NSR @ (77) Moderate voltage criteria for LVH, may be normal variant When compared with ECG of 12/06/16, No significant change was noted. Chest X-Ray Date: 03/13/19 Findings: + NAD FINDINGS: The bones soft tissues and hemidiaphragms are normal. The card iomediastinal silhouette is normal. The lungs are clear. The pulmonary vasculature is normal. IMPRESSION: Negative chest. Echocardiogram Date: 06/13/18 EF: 55% FINAL IMPRESSION: 1. Normal left ventricular wall motion and EF estimated in the range of 55% 2. Mild sclerotic changes involving both the aortic and mitral valve leaflets. 3. Trace to at most mild mitral and tricuspid valvular insufficiency. 4. Minimal to small amount of pericardial fluid identified. Stress Test Date: 12/21/16 Type: nuclear No significant ST-T wave changes associated with Lexiscan infusion. FINAL IMPRESSION: 1. Normal myocardial perfusion SPECT images without evidence for pharmacologically induced ischemia. 2. Normal left ventricular wall motion and thickening. 3. Normal left ventricular EF post stress at 73%.
[2019-04-19] MEDS ORDERED: ATROPINE SULFATE 0.1 MG/ML 10ML SYR IV PRN (13:49)
[2019-04-19] MEDS ORDERED: ePHEDrine sulfate 50 MG/ML AMP IV PRN (13:49)
[2019-04-19] MEDS ORDERED: HYDROmorphone INJ 1 MG/ML SYRINGE IV PRN (13:49)
[2019-04-19] MEDS ORDERED: PROPOFOL IV EMULSION 10 MG/ML 20 ML VIAL IV ONE ×2 (14:06→14:33)
[2019-04-19] MEDS ORDERED: LIDOCAINE HCL 2% 2 ML VIAL/AMP(20MG/ML) INFIL ONE (14:06)
[2019-04-19] MEDS ORDERED: ONDANSETRON INJ 2 MG/ML 2 ML VIAL ONE (14:33)
--- NOTE | 2019-04-19 15:09 | Operative Report ---
Post Operative Report Pre & Post Diagnosis Operation Date: 04/19/19 12:55 Pre-Op Diagnosis: Left Knee Degenerative Joint Disease Post-Op Diagnosis: Left Knee Degenerative Joint Disease Procedure Operation Date: 04/19/19 12:55 Actual Procedures p Left Total Knee Arthroplasty(Left) - Oliver Wells DO Surgeon Oliver Wells DO Grant Writer Oliver Freire PAC Estimated Blood Loss 50 Findings Consistent with Post-Op Diagnosis Specimens Left femoral and tibial bone Complications none Disposition Disposition: Recovery Room Indications June is a pleasant 63-year-old female who presented my office with chronic increasing left knee pain. X-rays and clinical examination were diagnostic for primary osteoarthritis of the left knee. After failing conservative treatment. She elected to undergo a left total knee arthroplasty. Description of Procedure Implants used: I used a [employer] Vanguard total knee arthroplasty system with a size 65 femur, 67 tibia, 31 patella, and a size 10 PS polyethylene bearing. All components were cemented in place with Palacos G cement. The patient arrived [facility] for the above procedure. There were seen in the preoperative holding area and the operative extremity was identified and signed. There were given a preoperative antibiotic, a spinal anesthetic and an adductor nerve block. There were taken back to the operating room and laid on the table in supine position. There were given basic sedation. The operative knee was then prepped and draped in sterile fashion. A timeout was done, and the patient and the operative extremity was properly identified. A midline incision was made directly over the patella. Dissection was taken down to the extensor mechanism. A subvastus arthrotomy was used. The medial retinaculum was released and the fat pad was mostly left intact. The knee was flexed and the ACL, PCL, and meniscus were removed. A drill was sent down the center of the femoral canal followed by an intramedullary lester. Off that lester a distal femoral cutting block was placed. 9 mm was resected off the distal femur at 5� of valgus. A posterior referencing AP sizing guide was then placed on the distal femur. The femur measured to be a size 65. 2 drill holes were placed in 3� of external rotation. A 4-in-1 cutting block was then impacted into place. Anterior posterior and chamfer cuts were then made. The posterior stabilizing box guide was then impacted into place and the box was resected for the posterior stabilizing component. The proximal tibia was then exposed. A drill was sent down the center of the tibial canal followed by an intramedullary lester. Off that lester a proximal tibial resection guide was placed. The proximal tibia was then resected. The tibia measured to be a size 67. The tibial plate was then placed in the appropriate rotation and the tibia was punched. The posterior aspect of the knee was then opened up and any additional meniscus fragments and osteophytes were removed. Trial components were then placed. I used a size 10 PS polyethylene insert. The knee was brought through a full range of motion and felt to be stable. The patella was then everted and 8 mm was resected off the posterior aspect of the patella. The patella measured to be a size 31. 3 peg holes were then drilled. A trial patella was placed. The knee was once again brought through a full range of motion and felt to be stable. Trial components were then removed. The surrounding soft tissues were injected with 100 cc of an orthopedic pain control cocktail. All components were then cemented into place with Palacos G cement. The final polyethylene insert was then snapped into place and the anterior bar was locked. Once cement was dry the tourniquet was deflated. Hemostasis was obtained. A dilute betadyne lavage was then done for 3 minutes. The joint was then irrigated with normal saline solution. The subvastus arthrotomy was then closed with #1 Vicryl suture. The skin was closed with 2-0 Vicryl, 3-0V lock suture, and tyrell. A soft compressive dressing was placed. The patient was then transferred to a hospital bed and taken to the postanesthesia care unit in stable condition. They tolerated the procedure well. I attest to the content of the Intraoperative Record and any orders documented therein. Any exceptions are noted below.
--- NOTE | 2019-04-19 15:57 | XRay Report ---
XR knee LT 2V routine HISTORY: 63 years-old Female Surgical Post Op left knee total joint arthroplasty. History of degener ative joint disease COMPARISON: Left knee radiographs 12/12/2018 TECHNIQUE: 2 views of the left knee FINDINGS: Left knee total joint arthroplasty with patellar resurfacing. Satisfactory alignment without acute fr acture, dislocation or opaque foreign body. Anterior midline skin tyrell are noted along with expect ed postsurgical soft tissue swelling and deep tissue air with surgical drainage catheter. IMPRESSION: Left knee total joint arthroplasty and patella resurfacing demonstrates satisfactory alig nment. The above report was generated using voice recognition software. It may contain grammatical, syntax o r spelling errors. Electronically signed by: Andrés Obrien M.D. 04/19/2019 3:56 PM
--- NOTE | 2019-04-19 16:00 | Anesthesiology Progress Note ---
Date of Service April 19, 2019 Anesthesia Post Procedure Vital Signs Vital Signs: Temp Pulse Pulse Pulse Resp BP BP 04/19/19 15:55 84 21 136/64 04/19/19 15:50 86 22 141/64 H 04/19/19 15:45 89 13 134/67 04/19/19 15:40 84 14 137/73 04/19/19 15:35 84 18 140/66 04/19/19 15:33 36.7 C 84 88 16 132/70 132/70 04/19/19 11:14 37.1 C 90 18 150/75 H Pulse Ox 04/19/19 15:55 98 04/19/19 15:50 97 04/19/19 15:45 100 04/19/19 15:40 100 04/19/19 15:35 100 04/19/19 15:33 100 04/19/19 11:14 98 Pain Intensity Left Knee: Pain Intensity: 0 Transfer of Care Handoff Completed per policy Notes Mental Status: alert / awake / arousable Patient Amnestic to Procedure: Yes Nausea / Vomiting: adequately controlled Pain: adequately controlled Airway Patency, RR, SpO2: stable & adequate BP & HR: stable & adequate Hydration State: stable & adequate Anesthetic Complications: no major complications apparent and Pt Satisfied with anesthetic care
[2019-04-19] MEDS ORDERED: ONDANSETRON INJ 2 MG/ML 2 ML VIAL IV PRN (16:48)
[2019-04-19] MEDS ORDERED: ALBUTEROL HFA 8 GM INHALER INH PRN (16:48)
[2019-04-19] MEDS ORDERED: MAGNESIUM HYDROXIDE SUSP 30 ML UDC PO PRN (16:48)
[2019-04-19] MEDS ORDERED: DiphenhydrAMINE HCL 50 MG/ML VIAL IV PRN (16:48)
[2019-04-19] MEDS ORDERED: HYDROmorphone INJ 0.5 MG/0.5 ML SYR IV PRN (16:48)
[2019-04-19] MEDS ORDERED: NALOXONE HCL 0.4 MG/1 ML VIAL/CARP IV PRN (16:48)
[2019-04-19] MEDS ORDERED: ADALIMUMAB SCH (16:48)
[2019-04-19] MEDS ORDERED: VANCOMYCIN CONSULT ACTIVE PRN (16:48)
[2019-04-19] MEDS ORDERED: METOCLOPRAMIDE HCL INJ 5 MG/ML 2 ML VIAL IV PRN (16:48)
[2019-04-19] MEDS ORDERED: TRAMADOL HCL 50 MG TABLET PO PRN (16:48)
[2019-04-19] MEDS ORDERED: SODIUM CHLORIDE 0.9% 1000ML 1,000 ML IV SCH (16:48)
[2019-04-19] MEDS ORDERED: BISACODYL 10 MG SUPP PR PRN (16:48)
[2019-04-19] MEDS: KETOROLAC 30 MG/ML VIAL IV SCH ×2 (18:41→23:51)
[2019-04-19] MEDS: HYDROXYCHLOROQUINE SULFATE 200 MG TAB PO SCH (20:36)
[2019-04-19] MEDS: GABAPENTIN 300 MG CAP PO SCH (20:36)
[2019-04-19] MEDS: DOCUSATE SODIUM 100 MG CAP PO SCH (20:36)
[2019-04-19] MEDS: ASPIRIN 81 MG ECTAB PO SCH (20:36)
[2019-04-19] MEDS ORDERED: DULOXETINE HCL 30 MG CAP PO SCH (21:00)
[2019-04-19] MEDS ORDERED: SENNA 8.6 MG TAB PO SCH (21:00)
[2019-04-20] MEDS ORDERED: VANCOMYCIN HCL 1,500 MG in SODIUM CHLORIDE 0.9% 500 ML IV SCH (02:00)
[2019-04-20 06:13] LABS: Hematocrit (blood only) 31.4 % (37-47); Hemoglobin 10.8 g/dL (12.0-16.0); Mean Corpuscular Hgb Conc 34.4 g/dL (32-36); Mean Corpuscular Volume 83.5 fL (80-100); Mean Platelet Volume 8.8 fL (7.4-10.4); Platelet Count 203 K/uL (130-400); RDW Coefficient of Variation 13.6 % (11.5-14.5); Red Blood Count 3.76 M/uL (4.2-5.4); White Blood Count 10.72 K/uL (4.8-10.8)
[2019-04-20] MEDS: KETOROLAC 30 MG/ML VIAL IV SCH (06:26)
[2019-04-20 07:09] LABS: Calcium 9.1 mg/dl (8.5-10.1); Creatinine Clr Calc Pharmacy 109.4 ml/min; Est GFR (African American) 110.8; Est GFR (Non-African American) 95.6; Potassium 4.1 mmol/L (3.5-5.1)
[2019-04-20] MEDS: DOCUSATE SODIUM 100 MG CAP PO SCH (07:50)
[2019-04-20] MEDS: GABAPENTIN 300 MG CAP PO SCH (07:51)
[2019-04-20] MEDS: ASPIRIN 81 MG ECTAB PO SCH (07:51)
[2019-04-20] MEDS: HYDROXYCHLOROQUINE SULFATE 200 MG TAB PO SCH (07:52)
[2019-04-20] MEDS ORDERED: MONTELUKAST SODIUM 10 MG TABLET PO SCH (09:00)
[2019-04-20] MEDS ORDERED: LOSARTAN/HCTZ 50/12.5MG TAB PO SCH (09:00)
[2019-04-20] MEDS ORDERED: METOPROLOL SUCC 50MG EXT REL TAB PO SCH (09:00)
[2019-04-20] MEDS ORDERED: MULTIVITAMIN TAB PO SCH (09:00)
[2019-04-20] MEDS ORDERED: PANTOprazole 40 MG TAB PO SCH (09:00)
--- NOTE | 2019-04-20 09:12 | Orthopedic Progress Note ---
Date of Service April 20, 2019 Assessment & Plan (1) Rheumatoid arthritis involving left knee: Overall she is doing very well. She is not having much pain in the left knee. She is been ambulating well already. She is on aspirin for DVT prophylaxis. She will be seen by physical therapy again this morning. We will discharge her to home later this morning. She has tramadol at home for pain. She will follow-up with orthopedics in 2 weeks. Present on Admission?: Yes Subjective June was seen and examined at bedside this morning. Overall she is doing very well. She is having little to no pain in the left knee. She is been up and ambulating around the nurses station already. She has no complaints. Physical Exam Musculoskeletal: On physical examination left knee, the dressing is clean and dry. Her legs out in full extension. She has full active dorsiflexion and plantarflexion of her left ankle. Sensations intact. Results & Data Vital Signs (Past 12 Hours) Vital Signs Temp Pulse Resp BP Pulse Ox 04/20/19 07:00 36.7 C 85 16 146/77 H 98 04/20/19 04:15 37.1 C 77 16 143/76 H 98 04/19/19 23:45 36.8 C 87 16 142/75 H 96 Laboratory Results H & H 03/13/19 04/20/19 Range/Units 14:05 05:12 Hgb 13.9 10.8 L (12.0-16.0) g/dL Hct 40.1 31.4 L (37-47) % Coagulation 03/13/19 Range/Units 14:05 INR 1.0 (0.9-1.1) Diagnostic Findings Postoperative x-rays of the left knee show the prosthesis to be in anatomic alignment without any evidence of fracture, dislocation, or loosening.
--- NOTE | 2019-04-20 09:16 | Discharge Summary ---
Date of Service April 20, 2019 Admission HPI Per Admitting Provider June is a pleasant 63-year-old female who is been dealing with chronic increasing left knee pain. X-rays and clinical examination have been diagnostic for rheumatoid arthritis of the left knee. After failing conservative treatment including multiple injections, she has elected proceed with a left total knee arthroplasty. Specialty Data Orthopedic H & H 03/13/19 04/20/19 Range/Units 14:05 05:12 Hgb 13.9 10.8 L (12.0-16.0) g/dL Hct 40.1 31.4 L (37-47) % Coagulation 03/13/19 Range/Units 14:05 INR 1.0 (0.9-1.1) Discharge Data Consultations 04/19/19 16:48 Consult Case Management - Discharge Planning Routine Procedures Performed Operation Date: 04/19/19 12:55 Actual Procedures p Left Total Knee Arthroplasty(Left) - Oliver Wells DO [facility] Course (1) Rheumatoid arthritis involving left knee: On April 19, 2019 June arrived at [facility] and underwent a left total knee arthroplasty without comp occasion. She had a spinal anesthetic and a left adductor nerve block. Postoperatively she was started on aspirin for DVT prophylaxis and discharged to general orthopedic floors. Her hospital course was uneventful. On postop day #1 her H&H was stable and her pain was well controlled. She was able to ambulate well with physical therapy. She was on tramadol for pain control. She was then discharged home with [place] [facility]. She will follow-up with orthopedics in 2 weeks. Discharge Instructions Home Medications Medication Instructions Recorded Confirmed albuterol sulfate 1 puff INHALATION Q6H PRN 03/06/19 04/19/19 pqunfmlyae-odijunw-dclwzrpc 1 cap PO DAILY PRN 03/06/19 04/19/19 [Fiorinal] calcium carbonate-vitamin D3 1 tab PO BID 03/06/19 04/19/19 [Calcium 600 + D(3)] cyclobenzaprine 5 mg PO DAILY PRN 03/06/19 04/19/19 duloxetine [Cymbalta] 30 mg PO HS 03/06/19 04/19/19 gabapentin 300 mg PO TID 03/06/19 04/19/19 hydroxychloroquine [Plaquenil] 200 mg PO BID 03/06/19 04/19/19 lorazepam 0.5 mg PO TID PRN 03/06/19 04/19/19 losartan-hydrochlorothiazide 1 tab PO QAM 03/06/19 04/19/19 [Hyzaar] melatonin 3 mg PO HS 03/06/19 04/19/19 metoprolol succinate 50 mg PO QAM 03/06/19 04/19/19 montelukast [Singulair] 10 mg PO QAM 03/06/19 04/19/19 nabumetone 750 mg PO BID 03/06/19 04/19/19 omega 8-npv-qne-fish oil [Fish Oil] 1 cap PO BID 03/06/19 04/19/19 omeprazole 40 mg PO QAM 03/06/19 04/19/19 psyllium husk [Fiber (psyllium 0.52 g PO QPM 03/06/19 04/19/19 husk)] tramadol 50 mg PO Q6H PRN 03/06/19 04/19/19 adalimumab [Humira] See Rx Instructions .ROUTE .COMPLEX 03/13/19 04/19/19 Previous Rx's Medication Instructions Recorded aspirin [Ecotrin Low Strength] 81 mg PO BID #84 tab 04/20/19
--- NOTE | 2019-04-20 09:56 | Anesthesiology Progress Note ---
Date of Service April 20, 2019 Anesthesia Post Procedure Vital Signs Vital Signs: Temp Pulse Pulse Pulse Resp BP BP 04/20/19 07:00 36.7 C 85 16 146/77 H 04/20/19 04:15 37.1 C 77 16 143/76 H 04/19/19 23:45 36.8 C 87 16 142/75 H 04/19/19 19:44 36.8 C 72 16 119/69 04/19/19 18:38 36.7 C 81 16 122/67 04/19/19 17:50 84 15 126/69 04/19/19 17:10 36.5 C 74 17 125/71 04/19/19 16:40 36.9 C 80 16 131/69 04/19/19 16:30 76 24 132/61 04/19/19 16:25 37.2 C 78 18 131/66 04/19/19 16:20 81 19 125/67 04/19/19 16:15 75 20 132/63 04/19/19 16:10 75 23 131/65 04/19/19 16:05 81 16 138/67 04/19/19 16:00 75 19 139/68 04/19/19 15:55 84 21 136/64 04/19/19 15:50 86 22 141/64 H 04/19/19 15:45 89 13 134/67 04/19/19 15:40 84 14 137/73 04/19/19 15:35 84 18 140/66 04/19/19 15:33 36.7 C 84 88 16 132/70 132/70 04/19/19 11:14 37.1 C 90 18 150/75 H Pulse Ox 04/20/19 07:00 98 04/20/19 04:15 98 04/19/19 23:45 96 04/19/19 19:44 96 04/19/19 18:38 95 04/19/19 17:50 96 04/19/19 17:10 99 04/19/19 16:40 96 04/19/19 16:30 97 04/19/19 16:25 96 04/19/19 16:20 99 04/19/19 16:15 96 04/19/19 16:10 99 04/19/19 16:05 97 04/19/19 16:00 98 04/19/19 15:55 98 04/19/19 15:50 97 04/19/19 15:45 100 04/19/19 15:40 100 04/19/19 15:35 100 04/19/19 15:33 100 04/19/19 11:14 98 Pain Intensity Left Knee: Pain Intensity: 0 Notes Mental Status: alert / awake / arousable and participated in evaluation Nausea / Vomiting: adequately controlled Pain: adequately controlled Airway Patency, RR, SpO2: stable & adequate BP & HR: stable & adequate Hydration State: stable & adequate Neuraxial Anesthesia: was administered and sensory block resolved Anesthetic Complications: no major complications apparent and Pt Satisfied with anesthetic care
== END 2019-04-20 12:48 | disposition home or self-care (01) | DRG 470 ==
LOC: ASU 10:44 → 3E 15:40

== ENCOUNTER 2019-07-24 05:46 | Observation (INO) ==
[2019-03-13 15:14] LABS: Appearance Urine Clear (Clear); Bilirubin Urine Negative (Negative); Blood Urine Negative (Negative); Color Urine Yellow; Glucose Urine UA Negative (Negative); Ketones Urine Negative (Negative); Leukocyte Esterase Urine Negative (Negative); Nitrite Urine Negative (Negative); Protein Urine Negative (Negative); Specific Gravity Urine 1.014 (1.000-1.030); Urobilinogen Urine Negative (Negative); pH Urine 5.5 (4.5-7.5)
--- NOTE | 2019-03-14 16:14 | Anesthesiology Consultation ---
Date of Service March 14, 2019 Assessment & Plan (1) Encounter for pre-operative examination: Patient's surgery is being postponed from March until July at this time because of concerns that having this ACDF so close before her total knee replacement. Will review again closer to the time of surgery. Chart Review Chart Review: Patient seen in Pre Admission Testing Consults Requested none Teaching & Discussion Pre-Anesthesia Teaching/Discussion Notes: Instructed NPO after midnight before surgery, except medications with 15 cc of water. Medication instructions pr ovided according to the PAT guidelines. History Surgery Operation Date: 07/24/19 07:45 Proposed Procedures p C3-C4 Anterior Cervical Discectomy and Fusion - [place] Donovan, Height/Weight Height: 5 ft 8 in Weight: 93.7 kg Allergies Allergy/AdvReac Type Severity Reaction Status Date / Time grass pollen-perennial rye, Allergy Unknown SNEEZING, Verified 03/06/19 10:13 standar ITCHY mold Allergy Unknown SNEEZING,IT Verified 03/06/19 10:13 HANANE Penicillins Allergy Unknown RASH Verified 03/06/19 10:13 codeine AdvReac Unknown N/V Verified 03/06/19 10:13 erythromycin base AdvReac Unknown SEVERE Verified 03/06/19 10:13 STOMACH CRAMPS, DIARRHEA, NAUSEA morphine AdvReac Unknown N/V Verified 03/06/19 10:13 Dust Allergy Unknown SNEEZING,RUNNY Uncoded 03/06/19 10:13 NOSE ITCHY Medications Home Medications Medication Instructions Recorded Confirmed Last Taken albuterol sulfate 1 puff INHALATION Q6H PRN 03/06/19 03/06/19 Unknown piyricbihz-liunhdt-zdskpkim 1 cap PO DAILY PRN 03/06/19 03/06/19 Unknown [Fiorinal] calcium carbonate-vitamin D3 1 tab PO BID 03/06/19 03/06/19 Unknown [Calcium 600 + D(3)] cyclobenzaprine 5 mg PO DAILY PRN 03/06/19 03/06/19 Unknown duloxetine [Cymbalta] 30 mg PO HS 03/06/19 03/06/19 Unknown gabapentin 300 mg PO TID 03/06/19 03/06/19 Unknown hydroxychloroquine [Plaquenil] 200 mg PO BID 03/06/19 03/06/19 Unknown lorazepam 0.5 mg PO TID PRN 03/06/19 03/06/19 Unknown losartan-hydrochlorothiazide 1 tab PO QAM 03/06/19 03/06/19 Unknown [Hyzaar] melatonin 3 mg PO HS 03/06/19 03/06/19 Unknown metoprolol succinate 50 mg PO QAM 03/06/19 03/06/19 Unknown montelukast [Singulair] 10 mg PO QAM 03/06/19 03/06/19 Unknown nabumetone 750 mg PO BID 03/06/19 03/06/19 Unknown omega 3-fbu-jqv-fish oil [Fish Oil] 1 cap PO BID 03/06/19 03/06/19 Unknown omeprazole 40 mg PO QAM 03/06/19 03/06/19 Unknown psyllium husk [Fiber (psyllium 0.52 g PO QPM 03/06/19 03/06/19 Unknown husk)] tramadol 50 mg PO Q6H PRN 03/06/19 03/06/19 Unknown adalimumab [Humira] See Rx Instructions .ROUTE .COMPLEX 03/13/19 03/13/19 Unknown Past Medical History Medical History Anxiety Asthma WELL CONTROLLED. RARELY USES INHALER. Bronchitis H/O Cancer RIGHT BREAST CANCER (MAY 2018) Chronic neck pain Degenerative disc disease Depression Diverticular disease GERD (gastroesophageal reflux disease) H/O Sjogren's disease Hypertension Migraine Non-alcoholic fatty liver disease PAT (paroxysmal atrial tachycardia) TAKES METOPROLOL. NO PROBLEMS SINCE ON MEDICATIONS Rheumatoid arthritis Exercise / Class Metabolic Activity II 4-5 Yardwork/Stairs/Walk up hill (Minimal currently due to knee and neck pain. Gardening, feeds chickens, walks for mail, cleans house. Able to climb stairs up, uses stair lift going down. Denies CP or SOB. ) Past Family History Family History Uncle Family hx of colon cancer Past Surgical History Surgical History Fusion of spine C4-C7 FUSION. FULL ROM 03/30/15 - MAC #3, ETT #7.0, Grade 1 View Fusion of spine L4-S1 05/01/17 - MAC #3, ETT #7.0, Grade 1 View H/O shoulder surgery RIGHT DISTAL CLAVICLE SURGERY 12/29/16 - LMA #4 History of arthroscopy RIGHT SHOULDER History of cholecystectomy LAP History of colonoscopy History of esophagogastroduodenoscopy (EGD) History of laminectomy LUMBAR History of mastectomy BILATERAL History of nasal septoplasty S/P EDDA-BSO Past Anesthesia History No Hx of Anesthesia Complications and No Family Hx of Anesthesia Complications History of PONV No Hx of Motion Sickness and History of PONV (Many years ago, nothing recent) Social History Smoking Status: Never smoker Do You Dip or Chew Tobacco: No Hx Alcohol Use: Yes Alcohol type: wine alcohol intake frequency: holidays/special occasions only Hx Substance Use: No substance use type: does not use Review of Systems Patient denies chest pain, shortness of breath, dyspnea on exertion, cough, wheezing, palpitations. +Joint Pain (Knees, neck, back, shoulder, right ankle) +Acid reflux (Controlled with medications) Physical Exam Vital Signs BP: 131/79 P: 78 R: 16 T: 98.5 SPO2: 100% on RA ENMT Mouth: + dental restorations Thyromental Distance: > or= 3.5 Finger Breadths (3.5) Mallampati Class: III Neck normal visual inspection and trachea midline; neck extension not limited Respiratory normal respiratory effort Auscultation: lungs clear to auscultation bilaterally Cardiovascular Rate/Rhythm: regular rate and regular rhythm Heart Sounds: + murmur (1/6) Vessels: no carotid bruit Musculoskeletal Spine: normal cervical ROM Neurologic moves all extremities Psychiatric Orientation: alert and oriented x 3 Testing Electrocardiogram Date: 03/13/19 Findings: + NSR @ (77) Moderate voltage criteria for LVH, may be normal variant When compared with ECG of 12/06/16, No significant change was noted. Chest X-Ray Date: 03/13/19 Findings: + NAD FINDINGS: The bones soft tissues and hemidiaphragms are normal. The cardiomediastinal silhouette is normal. The lungs are clear. The pulmonary v asculature is normal. IMPRESSION: Negative chest. Echocardiogram Date: 06/13/18 EF: 55% FINAL IMPRESSION: 1. Normal left ventricular wall motion and EF estimated in the range of 55% 2. Mild sclerotic changes involving both the aortic and mitral valve leaflets. 3. Trace to at most mild mitral and tricuspid valvular insufficiency. 4. Minimal to small amount of pericardial fluid identified. Stress Test Date: 12/21/16 Type: nuclear Findings: + WNL Resting LV Function: normal No significant ST-T wave changes associated with Lexiscan infusion. FINAL IMPRESSION: 1. Normal myocardial perfusion SPECT images without evidence for pharmacologically induced ischemia. 2. Normal left ventricular wall motion and thickening. 3. Normal left ventricular EF post stress at 73%. Laboratory Results Urine Color Yellow 03/13/19 Unknown Urine Appearance Clear (Clear) 03/13/19 Unknown Urine pH 5.5 (4.5-7.5) 03/13/19 Unknown Ur Specific [place] 1.014 (1.000-1.030) 03/13/19 Unknown Urine Protein Negative (Negative) 03/13/19 Unknown Urine Glucose (UA) Negative (Negative) 03/13/19 Unknown Urine Ketones Negative (Negative) 03/13/19 Unknown Urine Nitrite Negative (Negative) 03/13/19 Unknown Ur Leukocyte Esterase Negative (Negative) 03/13/19 Unknown 03/13/19 14:05 03/13/19 14:05 Blood Type O Positive 03/13/19 14:05 Antibody Screen NEGATIVE 03/13/19 14:05 PT 10.5 Seconds (9.0-12.0) 03/13/19 14:05 INR 1.0 (0.9-1.1) 03/13/19 14:05 APTT 25.6 Seconds (21.0-31.0) 03/13/19 14:05
[2019-07-05 12:21] LABS: Basophils # (auto) 0.08 K/uL (0-0.2); Basophils % (auto) 1.8 %; Eosinophils # (auto) 0.34 K/uL (0-0.5); Eosinophils % (auto) 7.6 %; Immature Granulocytes # (auto) 0.01 K/uL (0.00-0.02); Immature Granulocytes % (auto) 0.2 %; Lymphocytes # (auto) 1.45 K/uL (1.2-3.4); Lymphocytes % (auto) 32.3 %; Mean Corpuscular Hgb Conc 32.5 g/dL (32-36); Mean Platelet Volume 9.9 fL (7.4-10.4); Monocytes # (auto) 0.49 K/uL (0.11-0.59); Monocytes % (auto) 10.9 %; Neutrophils # (auto) 2.12 K/uL (1.4-6.5); Neutrophils % (auto) 47.2 %; Platelet Count 239 K/uL (130-400); RDW Coefficient of Variation 14.4 % (11.5-14.5); RDW Standard Deviation 43.8 fL (36.4-46.3); Red Blood Count 4.82 M/uL (4.2-5.4); White Blood Count 4.49 K/uL (4.8-10.8)
[2019-07-05 12:30] LABS: Prothrombin Time 10.1 Seconds (9.0-12.0)
[2019-07-05 12:43] LABS: Appearance Urine Clear (Clear); Bilirubin Urine Negative (Negative); Blood Urine Negative (Negative); Color Urine Yellow; Glucose Urine UA Negative (Negative); Ketones Urine Negative (Negative); Leukocyte Esterase Urine Negative (Negative); Nitrite Urine Negative (Negative); Protein Urine Negative (Negative); Specific Gravity Urine 1.021 (1.000-1.030); Urobilinogen Urine Negative (Negative); pH Urine 6.5 (4.5-7.5)
[2019-07-05 13:04] LABS: Creatinine Clr Calc Pharmacy 90.1 ml/min; Est GFR (Non-African American) 85.4; Potassium 3.9 mmol/L (3.5-5.1)
--- NOTE | 2019-07-05 15:45 | Anesthesiology Consultation ---
Date of Service July 05, 2019 Assessment & Plan (1) Encounter for pre-operative examination: Chart Review Chart Review: Acceptable Risk for Surgery and Patient NOT seen in Pre Admission Testing Consults Requested none History Surgery Operation Date: 07/24/19 07:45 Proposed Procedures p C3-C4 Anterior Cervical Discectomy and Fusion - [place] Donovan DO Height/Weight Height: 5 ft 8 in Weight: 87.543 kg Allergies Allergy/AdvReac Type Severity Reaction Status Date / Time grass pollen-perennial rye, Allergy Unknown SNEEZING, Verified 06/24/19 15:28 standar ITCHY mold Allergy Unknown SNEEZING,IT Verified 06/24/19 15:28 HANANE Penicillins Allergy Unknown RASH Verified 06/24/19 15:28 codeine AdvReac Unknown N/V Verified 06/24/19 15:28 erythromycin base AdvReac Unknown SEVERE Verified 06/24/19 15:28 STOMACH CRAMPS, DIARRHEA, NAUSEA morphine AdvReac Unknown N/V Verified 06/24/19 15:28 Dust Allergy Unknown SNEEZING,RUNNY Uncoded 06/24/19 15:28 NOSE ITCHY Medications Home Medications Medication Instructions Recorded Confirmed Last Taken albuterol sulfate 1 puff INHALATION Q6H PRN 03/06/19 06/24/19 Unknown oblzahpkni-ymfgiwb-vllrilzs 1 cap PO DAILY PRN 03/06/19 06/24/19 04/12/19 08:00 [Fiorinal] calcium carbonate-vitamin D3 1 tab PO BID 03/06/19 06/24/19 04/18/19 18:00 [Calcium 600 + D(3)] cyclobenzaprine 5 mg PO DAILY PRN 03/06/19 06/24/19 04/18/19 22:00 duloxetine [Cymbalta] 30 mg PO HS 03/06/19 06/24/19 04/18/19 22:00 gabapentin 300 mg PO TID 03/06/19 06/24/19 04/19/19 07:30 hydroxychloroquine [Plaquenil] 200 mg PO BID 03/06/19 06/24/19 04/19/19 07:30 lorazepam 0.5 mg PO TID PRN 03/06/19 06/24/19 04/19/19 07:30 losartan-hydrochlorothiazide 1 tab PO QAM 03/06/19 06/24/19 04/18/19 08:00 [Hyzaar] melatonin 3 mg PO HS 03/06/19 06/24/19 04/18/19 22:00 metoprolol succinate 50 mg PO QAM 03/06/19 06/24/19 04/19/19 07:30 montelukast [Singulair] 10 mg PO QAM 03/06/19 06/24/19 04/18/19 08:00 nabumetone 750 mg PO BID 03/06/19 06/24/19 04/05/19 08:00 omega 6-ilf-nrs-fish oil [Fish Oil] 1 cap PO BID 03/06/19 06/24/19 04/05/19 08:00 omeprazole 40 mg PO QAM 03/06/19 06/24/19 04/19/19 07:30 psyllium husk [Fiber (psyllium 0.52 g PO QPM 03/06/19 06/24/19 04/18/19 18:00 husk)] tramadol 50 mg PO Q6H PRN 03/06/19 06/24/19 04/19/19 07:30 leflunomide 10 mg PO QAM 06/24/19 06/24/19 Unknown Past Medical History Medical History Anxiety Asthma WELL CONTROLLED. RARELY USES INHALER. Bronchitis H/O Cancer RIGHT BREAST CANCER (MAY 2018) Chronic neck pain Degenerative disc disease Depression Diverticular disease GERD (gastroesophageal reflux disease) H/O Sjogren's disease Hypertension Migraine Mitral valve prolapse DR ENRIQUE. ECHO 2017. Nausea and vomiting after administration of anesthetic agent USES SCOPALAMINE PATCH AT HOSPITAL Non-alcoholic fatty liver disease Non-healing wound Right breast/axillary area following scar revision following with S Dr. Xiong Obesity PAT (paroxysmal atrial tachycardia) TAKES METOPROLOL. NO PROBLEMS SINCE ON MEDICATIONS Rheumatoid arthritis Past Surgical History Surgical History Fusion of spine C4-C7 FUSION. FULL ROM 03/30/15 - MAC #3, ETT #7.0, Grade 1 View Fusion of spine L4-S1 05/01/17 - MAC #3, ETT #7.0, Grade 1 View H/O shoulder surgery RIGHT DISTAL CLAVICLE SURGERY 12/29/16 - LMA #4 History of arthroscopy RIGHT SHOULDER History of cholecystectomy LAP History of colonoscopy History of esophagogastroduodenoscopy (EGD) History of laminectomy LUMBAR History of mastectomy BILATERAL History of nasal septoplasty History of total knee replacement LEFT S/P EDDA-BSO S/P scar revision MASTECTOMY SCAR REVISION 03/2019 Social History Smoking Status: Never smoker Do You Dip or Chew Tobacco: No Hx Alcohol Use: Yes Alcohol type: wine alcohol intake frequency: holidays/special occasions only Hx Substance Use: No substance use type: does not use Testing Laboratory Results 07/05/19 08:11 07/05/19 08:11 PT 10.1 Seconds (9.0-12.0) 07/05/19 08:11 INR 1.0 (0.9-1.1) 07/05/19 08:11 Urine Color Yellow 07/05/19 08:11 Urine Appearance Clear (Clear) 07/05/19 08:11 Urine pH 6.5 (4.5-7.5) 07/05/19 08:11 Ur Specific [place] 1.021 (1.000-1.030) 07/05/19 08:11 Urine Protein Negative (Negative) 07/05/19 08:11 Urine Glucose (UA) Negative (Negative) 07/05/19 08:11 Urine Ketones Negative (Negative) 07/05/19 08:11 Urine Nitrite Negative (Negative) 07/05/19 08:11 Ur Leukocyte Esterase Negative (Negative) 07/05/19 08:11 Electrocardiogram Date: 03/13/19 Findings: + NSR @ (77) Moderate voltage criteria for LVH, may be normal variant When compared with ECG of 12/06/16, No significant change was noted. Chest X-Ray Date: 03/13/19 Findings: + NAD FINDINGS: The bones soft tissues and hemidiaphragms are normal. The cardi omediastinal silhouette is normal. The lungs are clear. The pulmonary vasculature is normal. IMPRESSION: Negative chest. Echocardiogram Date: 06/13/18 EF: 55% FINAL IMPRESSION: 1. Normal left ventricular wall motion and EF estimated in the range of 55% 2. Mild sclerotic changes involving both the aortic and mitral valve leaflets. 3. Trace to at most mild mitral and tricuspid valvular insufficiency. 4. Minimal to small amount of pericardial fluid identified. Stress Test Date: 12/21/16 Type: nuclear Findings: + WNL Resting LV Function: normal No significant ST-T wave changes associated with Lexiscan infusion. FINAL IMPRESSION: 1. Normal myocardial perfusion SPECT images without evidence for pharmacologically induced ischemia. 2. Normal left ventricular wall motion and thickening. 3. Normal left ventricular EF post stress at 73%.
[2019-07-24] MEDS ORDERED: ACETAMINOPHEN 500 MG TAB PO SCH (06:00)
[2019-07-24] MEDS ORDERED: CeleBREX 200 MG CAP PO SCH (06:00)
[2019-07-24] MEDS ORDERED: LR 15ML/HR IV SCH (06:00)
[2019-07-24] MEDS ORDERED: GABAPENTIN 600 MG DOSE PO SCH (06:00)
[2019-07-24] MEDS ORDERED: CLINDAMYCIN 600 MG/54 ML BAG IV SCH ×2 (06:00)
[2019-07-24] MEDS ORDERED: fentaNYL citrate 100 MCG/2 ML VIAL ONE ×2 (06:42→08:05)
[2019-07-24] MEDS ORDERED: MIDAZOLAM HCL 1 MG/ML 2ML VIAL ONE (06:42)
[2019-07-24] MEDS ORDERED: PROPOFOL IV EMULSION 10 MG/ML 100 ML VIAL IV ONE ×2 (06:49→06:50)
[2019-07-24] MEDS ORDERED: BACITRACIN INJ 50,000 UNIT VIAL ONE (07:09)
--- NOTE | 2019-07-24 07:26 | History & Physical Bridge Note ---
Date of Service July 24, 2019 History & Physical Bridge Note I have examined the patient, reviewed the History & Physical and in the interval since the performance of the History & Physical I have noted the following changes of clinical significance: no changes noted
--- NOTE | 2019-07-24 07:28 | History & Physical Report ---
Date of Service July 24, 2019 Assessment & Plan (1) Cervical stenosis of spinal canal: Anterior cervical discectomy and fusion C3-4 Present on Admission?: Yes History of Present Illness Chief Complaint: Neck and arm pain Primary Care Provider: Izzy Mckinley MD This is a 63-year-old female well-known to me that presents with consistent neck and arm pain. After failing extensive course of nonoperative care she is here for surgical intervention. Allergies Allergy/AdvReac Type Severity Reaction Status Date / Time grass pollen-perennial rye, Allergy Unknown SNEEZING, Verified 07/24/19 06:16 standar ITCHY mold Allergy Unknown SNEEZING,IT Verified 07/24/19 06:16 HANANE Penicillins Allergy Unknown RASH Verified 07/24/19 06:16 codeine AdvReac Unknown N/V Verified 07/24/19 06:16 erythromycin base AdvReac Unknown SEVERE Verified 07/24/19 06:16 STOMACH CRAMPS, DIARRHEA, NAUSEA morphine AdvReac Unknown N/V Verified 07/24/19 06:16 Dust Allergy Unknown SNEEZING,RUNNY Uncoded 07/24/19 06:16 NOSE ITCHY Home Medications Home Medications Medication Instructions Recorded Confirmed Type albuterol sulfate 1 puff INHALATION Q6H PRN 03/06/19 07/24/19 History vjurlryxfn-oofhzoc-jdshpmyx 1 cap PO DAILY PRN 03/06/19 07/24/19 History [Fiorinal] calcium carbonate-vitamin D3 1 tab PO BID 03/06/19 07/24/19 History [Calcium 600 + D(3)] cyclobenzaprine 5 mg PO DAILY PRN 03/06/19 07/24/19 History duloxetine [Cymbalta] 30 mg PO HS 03/06/19 07/24/19 History gabapentin 300 mg PO TID 03/06/19 07/24/19 History hydroxychloroquine [Plaquenil] 200 mg PO BID 03/06/19 07/24/19 History lorazepam 0.5 mg PO TID PRN 03/06/19 07/24/19 History losartan-hydrochlorothiazide 1 tab PO QAM 03/06/19 07/24/19 History [Hyzaar] melatonin 3 mg PO HS 03/06/19 07/24/19 History metoprolol succinate 50 mg PO QAM 03/06/19 07/24/19 History montelukast [Singulair] 10 mg PO QAM 03/06/19 07/24/19 History nabumetone 750 mg PO BID 03/06/19 07/24/19 History omega 6-vli-wsb-fish oil [Fish Oil] 1 cap PO BID 03/06/19 07/24/19 History omeprazole 40 mg PO QAM 03/06/19 07/24/19 History psyllium husk [Fiber (psyllium 0.52 g PO QPM 03/06/19 07/24/19 History husk)] tramadol 50 mg PO Q6H PRN 03/06/19 07/24/19 History leflunomide 10 mg PO QAM 06/24/19 07/24/19 History doxycycline hyclate [Vibramycin] 100 mg PO BID 07/24/19 07/24/19 History fexofenadine-pseudoephedrine 1 tab PO QAM 07/24/19 07/24/19 History [Holly-D 24 Hour] Past Med/Surg History Medical History Anxiety Asthma WELL CONTROLLED. RARELY USES INHALER. Bronchitis H/O Cancer RIGHT BREAST CANCER (MAY 2018) Chronic neck pain Degenerative disc disease Depression Diverticular disease GERD (gastroesophageal reflux disease) H/O Sjogren's disease Hypertension Migraine Mitral valve prolapse DR ENRIQUE. ECHO 2017. Nausea and vomiting after administration of anesthetic agent USES SCOPALAMINE PATCH AT HOSPITAL Non-alcoholic fatty liver disease Non-healing wound Right breast/axillary area following scar revision following with [facility] Dr. Xiong Obesity PAT (paroxysmal atrial tachycardia) TAKES METOPROLOL. NO PROBLEMS SINCE ON MEDICATIONS Rheumatoid arthritis Surgical History Fusion of spine C4-C7 FUSION. FULL ROM 03/30/15 - MAC #3, ETT #7.0, Grade 1 View Fusion of spine L4-S1 05/01/17 - MAC #3, ETT #7.0, Grade 1 View H/O shoulder surgery RIGHT DISTAL CLAVICLE SURGERY 12/29/16 - LMA #4 History of arthroscopy RIGHT SHOULDER History of cholecystectomy LAP History of colonoscopy History of esophagogastroduodenoscopy (EGD) History of laminectomy LUMBAR History of mastectomy BILATERAL History of nasal septoplasty History of total knee replacement LEFT S/P EDDA-BSO S/P scar revision MASTECTOMY SCAR REVISION 03/2019 Social History Preferred Language: Kazakh Communication Ability: Effective Case Picker Required: No Beliefs That Will Affect Care: None Current Living Situation: Spouse and Family Current Living Situation Comment: SON, FATHER AND Other Information That Helps Us Care for You: No Feels Safe at Home: Yes Safety Concerns: Feels Safe At This Time Smoking Status: Never smoker Do You Dip or Chew Tobacco: No ; Second Hand Exposure: No ; Tobacco Cessation Education Requested by Patient: No Hx Alcohol Use: Yes Alcohol type: wine Hx Substance Use: No Physical Exam Physical Exam: Patient is alert and oriented neurologically intact. Results & Data Vital Signs (Past 12 Hours) Vital Signs Temp Pulse Resp BP Pulse Ox 07/24/19 06:13 36.9 C 85 20 174/86 H 100
[2019-07-24] MEDS ORDERED: SCOPOLAMINE 1.5 MG TDSY ONE (07:34)
[2019-07-24] MEDS ORDERED: SCOPOLAMINE 1.5 MG TDSY TD ONE (08:05)
[2019-07-24] MEDS ORDERED: HYDROmorphone INJ 2 MG/ML SYR/VIAL ONE ×2 (08:05→08:06)
[2019-07-24] MEDS ORDERED: ONDANSETRON INJ 2 MG/ML 2 ML VIAL ONE (08:15)
[2019-07-24] MEDS ORDERED: ROCURONIUM BROMIDE 10 MG/ML 5 ML VIAL ONE (08:15)
[2019-07-24] MEDS ORDERED: METOCLOPRAMIDE HCL INJ 5 MG/ML 2 ML VIAL ONE (08:15)
[2019-07-24] MEDS ORDERED: SUCCINYLCHOLINE CHLORIDE 20 MG/ML 10 ML VIAL ONE (08:15)
[2019-07-24] MEDS ORDERED: raNITIdine HCl 25 MG/ML VIAL IV ONE (08:15)
[2019-07-24] MEDS ORDERED: ePHEDrine sulfate 50 MG/ML SYR ONE (08:15)
[2019-07-24] MEDS ORDERED: DEXAMETHASONE SOD INJ 4 MG/ML VIAL ONE (08:15)
[2019-07-24] MEDS ORDERED: PROPOFOL IV EMULSION 10 MG/ML 20 ML VIAL IV ONE (08:15)
[2019-07-24] MEDS ORDERED: NEOSTIGMINE METHYLSULFATE 1 MG/ML 10ML VIAL ONE (08:15)
[2019-07-24] MEDS ORDERED: LIDOCAINE HCL 2% 2 ML VIAL/AMP(20MG/ML) INFIL ONE (08:15)
[2019-07-24] MEDS ORDERED: GLYCOPYRROLATE 0.2 MG/ML VIAL ONE (08:15)
[2019-07-24] MEDS ORDERED: FLOSEAL HEMOSTATIC MATRIX 10ML TOP ONE (08:43)
[2019-07-24] MEDS ORDERED: ONDANSETRON INJ 2 MG/ML 2 ML VIAL IV PRN ×2 (08:47→08:51)
[2019-07-24] MEDS ORDERED: fentaNYL citrate 100 MCG/2 ML VIAL IV PRN (08:47)
[2019-07-24] MEDS ORDERED: HYDROmorphone INJ 2 MG/ML SYR/VIAL IV PRN (08:47)
[2019-07-24] MEDS ORDERED: ePHEDrine sulfate 50 MG/ML AMP IV PRN (08:47)
[2019-07-24] MEDS ORDERED: ATROPINE SULFATE 0.1 MG/ML 10ML SYR IV PRN (08:47)
[2019-07-24] MEDS ORDERED: SCOPOLAMINE 1.5 MG TDSY TD STA (08:48)
[2019-07-24] MEDS ORDERED: MAGNESIUM HYDROXIDE SUSP 30 ML UDC PO PRN (08:51)
[2019-07-24] MEDS ORDERED: OXYCODONE HCL IR 5 MG TAB (IMMEDIATE RELEASE) PO PRN (08:51)
[2019-07-24] MEDS ORDERED: HYDROmorphone INJ 0.5 MG/0.5 ML SYR IV PRN (08:51)
[2019-07-24] MEDS ORDERED: LORazepam 0.5 MG/1 ML VIAL IV PRN (08:51)
[2019-07-24] MEDS ORDERED: DiphenhydrAMINE HCL 50 MG/ML VIAL IV PRN (08:51)
[2019-07-24] MEDS ORDERED: RACEPINEPHRINE 2.25% NEBU SOLN 0.5 ML VIAL INH PRN (08:51)
[2019-07-24] MEDS ORDERED: DEXAMETHASONE SOD PHOSPHATE 8 MG in SYRINGE 0 ML IV PRN (08:51)
[2019-07-24] MEDS ORDERED: DO NOT ADMINISTER FLU VACCINE PRN (08:51)
[2019-07-24] MEDS ORDERED: DO NOT ADMINISTER PNEUMOCOCCAL VACCINE PRN (08:51)
[2019-07-24] MEDS ORDERED: ACETAMINOPHEN 1,000 MG/100 ML VIAL IV PRN (08:51)
[2019-07-24] MEDS ORDERED: NALOXONE HCL 0.4 MG/1 ML VIAL/CARP IV PRN (08:51)
[2019-07-24] MEDS ORDERED: LORazepam 0.5 MG TAB PO PRN ×2 (08:51→10:43)
--- NOTE | 2019-07-24 08:51 | Operative Report ---
Post Operative Report Pre & Post Diagnosis Operation Date: 07/24/19 07:45 Pre-Op Diagnosis: Cervical stenosis of spinal canal Post-Op Diagnosis: Cervical stenosis of spinal canal Procedure Operation Date: 07/24/19 07:45 Actual Procedures #1 anterior cervical discectomy with bilateral foraminotomies C3-4. #2 anterior cervical arthrodesis C3-4. #3 placement of 8 mm globus coalition interbody cage filled with DBM and C3-4. Surgeon Modesto Donovan DO [employer] Instructor Oneyda Cervantes Estimated Blood Loss 10 Findings Consistent with Post-Op Diagnosis Specimens None Indications This is a 63-year-old female well-known to me that presents with above-mentioned diagnosis after failing extensive course of nonoperative care like to undergo above-mentioned procedure. Description of Procedure Patient was met with identified and informed consent obtained. Patient was then taken to the operative suite underwent ablation placed in prone position check stable all bony prominences well-padded eyes inspected to ensure no external pressure was prompt at this point the anterior cervical spine was prepped and draped in normal sterile fashion. Sharp dissection with the assistance of Bovie cautery was performed on down to and exposing the anterior cervical spine at C3- 4. Self-retaining retractors placed. Then performed a complete discectomy out to the uncovertebral joints bilaterally. This included removal of all posterior annular fibers longitudinal ligament bilateral foraminotomies performed. Endplates were then burred to subcortical bleeding bone and an 8 mm coalition filled with DBM tapped into position. 16 mm screws were then used to locked into position. The incision was then copiously irrigated explored to ensure no damage to surrounding structures remaining bleeding occurred. 10 round KAMALJIT drain inserted. Incision closed with 2 Vicryl fascia for Monocryl for final closure Steri-Strip sterile dressing placed. Patient will continue PACU stable condition. Please note Oneyda Cervantes present throughout the entire procedure involved in patient positioning complex portions of the surgery and final skin closure. Lastly spinal cord monitoring was utilized throughout the procedure and no changes noted. I attest to the content of the Intraoperative Record and any orders documented therein. Any exceptions are noted below.
[2019-07-24] MEDS ORDERED: SCOPOLAMINE 1.5 MG TDSY TD SCH (09:00)
--- NOTE | 2019-07-24 09:14 | Fluoroscopy Report ---
FL cervical 2-3V CLINICAL HISTORY: ACDF C3-C4 COMPARISON STUDY: 03/30/2015 FLUOROSCOPY TIME: 8 seconds NUMBER OF FLUOROSCOPIC IMAGES: 2 FINDINGS: Findings consistent with image support for an anterior C3-C4 cervical fusion. IMPRESSION: Image intensifier support for an anterior C3-C4 fusion The above report was generated using voice recognition software. It may contain grammatical, syntax or spelling errors. Electronically signed by: Juan Luis Stovall M.D. 07/24/2019 9:13 AM
--- NOTE | 2019-07-24 10:05 | Anesthesiology Progress Note ---
Date of Service July 24, 2019 Anesthesia Post Procedure Vital Signs Vital Signs: Temp Pulse Pulse Resp BP Pulse Ox 07/24/19 10:00 36.4 C L 69 17 149/75 H 100 07/24/19 09:50 36.4 C L 66 17 154/73 H 100 07/24/19 09:40 77 18 147/71 H 98 07/24/19 09:30 67 18 148/71 H 100 07/24/19 09:20 76 18 150/73 H 100 07/24/19 09:10 92 H 18 145/65 H 100 07/24/19 09:02 36.2 C L 92 H 14 150/69 H 100 07/24/19 06:13 36.9 C 85 20 174/86 H 100 Pain Intensity Generalized: Pain Intensity: 6 Posterior Neck: Pain Intensity: 4 Lower Back: Pain Intensity: 8 Anterior Neck: Pain Intensity: 0 Transfer of Care Handoff Completed per policy Notes Mental Status: alert / awake / arousable and participated in evaluation Patient Amnestic to Procedure: Yes Nausea / Vomiting: adequately controlled Pain: adequately controlled Airway Patency, RR, SpO2: stable & adequate BP & HR: stable & adequate Hydration State: stable & adequate Anesthetic Complications: no major complications apparent and Pt Satisfied with anesthetic care
[2019-07-24] MEDS ORDERED: LARYING-O-JET KIT (LTA) ONE (10:29)
[2019-07-24] MEDS ORDERED: CYCLOBENZAPRINE HCL 5 MG TAB PO PRN (10:43)
[2019-07-24] MEDS ORDERED: ALBUTEROL HFA 8 GM INHALER INH PRN (10:43)
[2019-07-24] MEDS ORDERED: TRAMADOL HCL 50 MG TABLET PO PRN (10:43)
[2019-07-24] MEDS ORDERED: BUTALBITAL/ASPIRIN/CAFFEINE 1 TAB TAB PO PRN (10:43)
[2019-07-24] MEDS: DOCUSATE SODIUM 100 MG CAP PO SCH ×2 (13:06→21:32)
[2019-07-24] MEDS: PANTOprazole 40 MG TAB PO SCH (13:07)
[2019-07-24] MEDS: METOPROLOL SUCC 50MG EXT REL TAB PO SCH ×2 (13:07→13:08)
[2019-07-24] MEDS: DOXYCYCLINE HYCLATE 100 MG CAP PO SCH ×2 (13:08→21:37)
[2019-07-24] MEDS: MONTELUKAST SODIUM 10 MG TABLET PO SCH (13:08)
[2019-07-24] MEDS: LEFLUNOMIDE 10 MG TAB PO SCH (13:08)
[2019-07-24] MEDS: LOSARTAN/HCTZ 50/12.5MG TAB PO SCH (13:08)
[2019-07-24] MEDS: HYDROXYCHLOROQUINE SULFATE 200 MG TAB PO SCH ×2 (13:09→21:33)
[2019-07-24] MEDS: CALCIUM 600MG + VIT D 400 IU TAB PO SCH ×2 (13:09→21:32)
[2019-07-24] MEDS: OMEGA-3 (PURIFIED FISH OIL) 1 GM CAP PO SCH ×2 (13:09→21:31)
[2019-07-24] MEDS: GABAPENTIN 300 MG CAP PO SCH ×2 (13:09→21:31)
[2019-07-24] MEDS: LACTATED RINGER'S 1,000 ML IV SCH (13:10)
[2019-07-24] MEDS: CHECK SCOPOLAMINE PATCH PLACEMENT SCH ×2 (15:53→23:58)
[2019-07-24] MEDS: CLINDAMYCIN 600 MG in DEXTROSE 5% 50 ML IV SCH ×2 (15:54→23:56)
[2019-07-24] MEDS ORDERED: CHECK SCOPOLAMINE PATCH PLACEMENT SCH ×2 (16:00)
[2019-07-24] MEDS ORDERED: DULOXETINE HCL 30 MG CAP PO SCH (21:00)
[2019-07-24] MEDS ORDERED: PSYLLIUM 58.6% POWDER PACKET PO SCH (21:00)
[2019-07-24] MEDS: NABUMETONE 500 MG TABLET PO SCH (21:34)
[2019-07-25] MEDS: LACTATED RINGER'S 1,000 ML IV SCH (01:48)
[2019-07-25] MEDS: CLINDAMYCIN 600 MG in DEXTROSE 5% 50 ML IV SCH (08:03)
[2019-07-25] MEDS: CHECK SCOPOLAMINE PATCH PLACEMENT SCH (08:06)
--- NOTE | 2019-07-25 08:19 | Anesthesiology Progress Note ---
Date of Service July 25, 2019 Anesthesia Post Procedure Vital Signs Vital Signs: Temp Pulse Pulse Pulse Resp BP Pulse Ox 07/25/19 07:40 36.9 C 07/25/19 07:30 70 15 162/76 H 97 07/25/19 07:06 82 14 98 07/25/19 05:40 36.6 C 80 18 167/70 H 97 07/25/19 03:44 36.5 C 80 16 151/69 H 95 07/25/19 03:40 89 16 97 07/25/19 01:32 36.5 C 70 16 132/61 97 07/25/19 00:31 96 07/24/19 23:30 36.7 C 66 16 130/62 95 07/24/19 23:07 88 16 98 07/24/19 21:30 36.4 C L 92 H 16 164/80 H 92 07/24/19 19:25 37.0 C 95 H 16 162/78 H 95 07/24/19 18:57 96 H 16 98 07/24/19 15:48 36.6 C 85 18 155/70 H 95 07/24/19 15:25 87 14 97 07/24/19 13:31 36.4 C L 93 H 18 118/61 93 07/24/19 12:27 36.7 C 78 18 140/82 07/24/19 11:58 36.7 C 74 18 128/69 98 07/24/19 11:25 69 16 132/73 98 07/24/19 11:13 78 12 100 07/24/19 10:55 36.4 C L 68 16 137/72 98 07/24/19 10:25 07/24/19 10:24 36.4 C L 98 H 16 140/69 97 07/24/19 10:15 36.4 C L 73 17 146/72 H 98 07/24/19 10:00 36.4 C L 69 17 149/75 H 100 07/24/19 09:50 36.4 C L 66 17 154/73 H 100 07/24/19 09:40 77 18 147/71 H 98 07/24/19 09:30 67 18 148/71 H 100 07/24/19 09:20 76 18 150/73 H 100 07/24/19 09:10 92 H 18 145/65 H 100 07/24/19 09:02 36.2 C L 92 H 14 150/69 H 100 Pulse Ox 07/25/19 07:40 07/25/19 07:30 07/25/19 07:06 07/25/19 05:40 07/25/19 03:44 07/25/19 03:40 07/25/19 01:32 07/25/19 00:31 07/24/19 23:30 07/24/19 23:07 07/24/19 21:30 07/24/19 19:25 07/24/19 18:57 07/24/19 15:48 07/24/19 15:25 07/24/19 13:31 07/24/19 12:27 07/24/19 11:58 07/24/19 11:25 07/24/19 11:13 07/24/19 10:55 07/24/19 10:25 97 07/24/19 10:24 07/24/19 10:15 07/24/19 10:00 07/24/19 09:50 07/24/19 09:40 07/24/19 09:30 07/24/19 09:20 07/24/19 09:10 07/24/19 09:02 Pain Intensity Generalized: Pain Intensity: 6 Posterior Neck: Pain Intensity: 4 Lower Back: Pain Intensity: 8 Anterior Neck: Pain Intensity: 0 Bilateral Head: Pain Intensity: 6 Notes Mental Status: alert / awake / arousable and participated in evaluation Nausea / Vomiting: adequately controlled Pain: adequately controlled Airway Patency, RR, SpO2: stable & adequate BP & HR: stable & adequate Hydration State: stable & adequate
[2019-07-25] MEDS: DOXYCYCLINE HYCLATE 100 MG CAP PO SCH (08:46)
[2019-07-25] MEDS: LOSARTAN/HCTZ 50/12.5MG TAB PO SCH (08:47)
[2019-07-25] MEDS: NABUMETONE 500 MG TABLET PO SCH (08:49)
[2019-07-25] MEDS: DOCUSATE SODIUM 100 MG CAP PO SCH (08:49)
[2019-07-25] MEDS: OMEGA-3 (PURIFIED FISH OIL) 1 GM CAP PO SCH (08:50)
[2019-07-25] MEDS: PANTOprazole 40 MG TAB PO SCH (08:50)
[2019-07-25] MEDS: HYDROXYCHLOROQUINE SULFATE 200 MG TAB PO SCH (08:51)
[2019-07-25] MEDS: CALCIUM 600MG + VIT D 400 IU TAB PO SCH (08:51)
[2019-07-25] MEDS: LEFLUNOMIDE 10 MG TAB PO SCH (08:51)
[2019-07-25] MEDS: GABAPENTIN 300 MG CAP PO SCH (08:52)
[2019-07-25] MEDS: MONTELUKAST SODIUM 10 MG TABLET PO SCH (08:52)
[2019-07-25] MEDS ORDERED: FEXOFENADINE 60MG/PSEUDOEPHEDRINE 120MG TAB PO SCH (09:00)
--- NOTE | 2019-07-25 10:38 | Discharge Summary ---
Date of Service July 25, 2019 Admission HPI Per Admitting Provider This is a 63-year-old female well-known to me that presents with consistent neck and arm pain. After failing extensive course of nonoperative care she is here for surgical intervention. Principal Diagnosis Cervical spinal stenosis with radiculopathy Discharge Data Allergies Allergy/AdvReac Type Severity Reaction Status Date / Time grass pollen-perennial rye, Allergy Unknown SNEEZING, Verified 07/24/19 06:16 standar ITCHY mold Allergy Unknown SNEEZING,IT Verified 07/24/19 06:16 HANANE Penicillins Allergy Unknown RASH Verified 07/24/19 06:16 codeine AdvReac Unknown N/V Verified 07/24/19 06:16 erythromycin base AdvReac Unknown SEVERE Verified 07/24/19 06:16 STOMACH CRAMPS, DIARRHEA, NAUSEA morphine AdvReac Unknown N/V Verified 07/24/19 06:16 Dust Allergy Unknown SNEEZING,RUNNY Uncoded 07/24/19 06:16 NOSE ITCHY Procedures Performed Operation Date: 07/24/19 07:45 Actual Procedures p C3-C4 Anterior Cervical Discectomy and Fusion, Spinal Cord Monitoring(Not Applicable) - Modesto Donovan DO Ordered Studies 07/24/19 07:45 FL cervical 2-3V Routine FL fluoroscopy <1hr Routine Hospital Course (1) Cervical stenosis of spinal canal: Patient underwent anterior cervical discectomy and fusion tolerated as well as taken to the orthopedic for postoperative. Postop day 1 she was swallowing well. She had no hoarseness. Arm symptoms and leg symptoms improved. Subsequently discharged home. Discharge orders instructions can be found chart for further review. Total Time Total Time Spent Total Time Spent (In Minutes): 20 minutes Discharge Plan Discharge Items Patient Disposition: Home - Self-Care Reason For Visit: Spinal Stenosis, Cervical Region Discharge Diagnosis: Cervical spinal stenosis with radiculopathy Activity: Per Instructions section Non-emergency contact: Primary Care Provider Call non-emergency contact if: you have any medication questions Follow-up/Referrals: Izzy Monsalve MD [Primary Care Provider] - Diet: Regular Addtl Attending Provider Instructions: ACTIVITY RECOMMENDATIONS: SELF CARE INSTRUCTIONS AFTER CERVICAL FUSIONS 1. No smoking. Smoking drastically decreases the chance of a solid fusion. 2. No bending, lifting more than 5 pounds, or twisting (roll like a log when turning in bed). 3. You may shower 3 days after surgery. Thoroughly dry wound. Do not soak in the tub. 4. Cervical collar: Must be worn at all times including sleeping. You may remove the brace only to bath, eat and if you are sitting in a recliner. 5. Please walk as much as you can for exercise. Gradually increase the distance that you walk as your endurance increases. SPECIAL CARE INSTRUCTIONS: VERY IMPORTANT TO READ AND REVIEW A. Do not take any anti-inflammatory medications (i.e. Indocin, Advil, Aspirin, Naprosyn, Aleve, Motrin, etc.) as these may inhibit the chance of a solid fusion. Tylenol is okay to take. B. Your surgical incision has been closed with a cosmetic suture under the skin that will dissolve in about 6 weeks. In 14 days, you can use a pair of clean scissors and cut the suture that is left outside of the skin at the ends of your incision. C. Complications are uncommon, but please contact us if you have any signs or symptoms of: 1. wound infection (fever higher than 102.5 degrees F, redness, separation of wound, drainage, or increasing pain from the incision) 2. blood clots in legs (pain, swelling, redness and warmth in legs) 3. urinary tract infection (fever higher than 102.5 degrees, burning upon urination or increased frequency of urination) 4. nerve problems (inability to walk on your toes or heels, numbness, loss of bowel or bladder control) 5. any other symptoms that concern you. D. Please call the office at if you have any concerns or questions about your operation or recovery. MANAGING PAIN AFTER SPINAL SURGERY 1. Narcotic medication is intended for short-term use and will be provided for surgical pain. Surgical pain usually lasts for a period of 4-6 weeks. Narcotic medication includes Percocet, Vicodin, Darvocet, Tylenol #3 or Lortab. 2. Longer-term pain is more appropriately treated with non-narcotic medication such as Tylenol ES. 3. Muscle spasm is not appropriately treated with narcotics. Muscle relaxers such as Soma, Flexeril or Skelaxin can be used along with Tylenol ES. 4. Remember that we all live with some "aches and pains". This is not unusual or uncommon after an injury or as we get older. 5. We will provide appropriate medication within the normal guidelines of their prescribed use. We will also be very cautious and aware of potential abuse and extended duration of patients' medication needs. 6. Please allow 2-3 days to process refills. Prescriptions will not be mailed but must be picked up at the office. FOLLOW UP VISIT: Keep your scheduled follow-up appointment. Any questions, please call the office at . Pending Studies at Discharge: No Stand-Alone Forms: [facility], [facility] Medications and DC Order Prescriptions: New tramadol 50 mg Tablet 50 mg PO Q6H PRN (Reason: Pain, Moderate) Qty: 20 RF: 0 oxycodone 5 mg Tablet 5 mg PO Q4H PRN (Reason: Pain, Severe) Qty: 20 RF: 0 Continued nabumetone 750 mg Tablet 750 mg PO BID RF: 0 metoprolol succinate 50 mg Tablet Extended Release 24 Hr 50 mg PO QAM RF: 0 melatonin 3 mg Tablet 3 mg PO HS RF: 0 omeprazole 40 mg Capsule,Delayed Release(Dr/Ec) 40 mg PO QAM RF: 0 gabapentin 300 mg Capsule 300 mg PO TID RF: 0 montelukast [Singulair] 10 mg Tablet 10 mg PO QAM RF: 0 hydroxychloroquine [Plaquenil] 200 mg Tablet 200 mg PO BID RF: 0 albuterol sulfate 90 mcg/actuation Hfa Aerosol Inhaler 1 puff INHALATION Q6H PRN (Reason: SOB/WHEEZING) RF: 0 losartan-hydrochlorothiazide [Hyzaar] 50-12.5 mg Tablet 1 tab PO QAM RF: 0 psyllium husk [Fiber (psyllium husk)] 0.52 gram Capsule 0.52 g PO QPM RF: 0 duloxetine [Cymbalta] 30 mg Capsule,Delayed Release(Dr/Ec) 30 mg PO HS RF: 0 calcium carbonate-vitamin D3 [Calcium 600 + D(3)] 600 mg(1,500mg) -400 unit Tablet 1 tab PO BID RF: 0 omega 8-yuf-rmc-fish oil [Fish Oil] 360-1,200 mg Capsule,Delayed Release(Dr/Ec) 1 cap PO BID RF: 0 tramadol 50 mg Tablet 50 mg PO Q6H PRN (Reason: Pain) RF: 0 lorazepam 0.5 mg Tablet 0.5 mg PO TID PRN (Reason: Anxiety) RF: 0 qiamuuajqw-zvnllxm-uilklqom [Fiorinal] 50-325-40 mg Capsule 1 cap PO DAILY PRN (Reason: MIGRAINES) RF: 0 cyclobenzaprine 5 mg Tablet 5 mg PO DAILY PRN (Reason: MUSCLE SPASMS) RF: 0 leflunomide 10 mg Tablet 10 mg PO QAM RF: 0 doxycycline hyclate [Vibramycin] 100 mg Capsule 100 mg PO BID RF: 0 Holly-D 24 Hour 180-240 mg Tablet Extended Release 24 Hr 1 tab PO QAM RF: 0 Discharge Orders: Discharge Order (Routine); Ordered 07/25/19 Ordered By: Modesto Ramires/Other Patient Handouts: Surgery Prevent DVT After Admission Data Admit Date/Time: 07/24/19 08:52 Attending Provider: Modesto Donovan Admit Provider: Modesto Donovan Primary Care Provider: Izzy Monsalve Other Interventions: Discharge Summary Assessment (RN) Last Done: 07/25/19 09:49
[2019-07-26] MEDS ORDERED: POLYETHYLENE (MIRALAX) 17 GM PACK PO PRN (08:53)
== END 2019-07-25 11:29 | disposition home or self-care (01) ==
LOC: ASU 05:46 → 3E 05:46

== ENCOUNTER 2020-04-20 07:16 | Observation (INO) ==
[2020-04-08 15:30] LABS: Basophils # (auto) 0.05 K/uL (0-0.2); Basophils % (auto) 0.6 %; Eosinophils # (auto) 0.16 K/uL (0-0.5); Eosinophils % (auto) 1.9 %; Hematocrit (blood only) 40.9 % (37-47); Hemoglobin 14.1 g/dL (12.0-16.0); Immature Granulocytes # (auto) 0.02 K/uL (0.00-0.02); Immature Granulocytes % (auto) 0.2 %; Lymphocytes # (auto) 1.88 K/uL (1.2-3.4); Mean Corpuscular Hemoglobin 28.7 pg (25-34); Mean Corpuscular Hgb Conc 34.5 g/dL (32-36); Mean Corpuscular Volume 83.3 fL (80-100); Mean Platelet Volume 9.2 fL (7.4-10.4); Monocytes % (auto) 11.7 %; Neutrophils # (auto) 5.43 K/uL (1.4-6.5); Neutrophils % (auto) 63.6 %; Platelet Count 260 K/uL (130-400); RDW Coefficient of Variation 14.2 % (11.5-14.5); RDW Standard Deviation 43.3 fL (36.4-46.3); Red Blood Count 4.91 M/uL (4.2-5.4); White Blood Count 8.54 K/uL (4.8-10.8)
[2020-04-08 15:52] LABS: Alanine Aminotransferase 50 U/L (12-78); Aspartate Aminotransferase 25 U/L (15-37); Blood Urea Nitrogen 10 mg/dl (7-18); Calcium 9.9 mg/dl (8.5-10.1); Carbon Dioxide 27 mmol/L (21-32); Chloride 100 mmol/L (98-107); Est GFR (African American) 92.3; Est GFR (Non-African American) 79.7; Glucose 100 mg/dl (70-99); Potassium 3.4 mmol/L (3.5-5.1); Sodium 134 mmol/L (136-145)
[2020-04-08 15:55] LABS: Albumin Globulin Ratio 1.1 (0.9-2); Alkaline Phosphatase 114 U/L (45-117); Bilirubin,Total 0.3 mg/dl (0.2-1); Globulin 3.5 gm/dl (2.5-4.0); Total Protein 7.5 gm/dl (6.4-8.2)
--- NOTE | 2020-04-11 20:14 | Anesthesiology Consultation ---
Date of Service April 11, 2020 Assessment & Plan (1) Encounter for pre-operative examination: Per nursing phone assessment on 04/09/20: Travel screen- Lives in [facility]. No known COVID-19 positive contacts. No history of COVID-19 testing. No current COVID-19 related symptoms. - S/P ACDF C3-C4: 07/24/19: Grade view 1, MAC#3, ETT 7.0 at [facility] Chart Review Chart Review: Acceptable Risk for Surgery and Patient NOT seen in Pre Admission Testing History Surgery Operation Date: 04/20/20 11:20 Proposed Procedures p Right Total Knee Arthroplasty - Oliver Wells, DO Height/Weight Height: 5 ft 8 in Weight: 95.254 kg Allergies Allergy/AdvReac Type Severity Reaction Status Date / Time erythromycin base Allergy Intermediate SEVERE Verified 04/09/20 13:50 STOMACH CRAMPS, DIARRHEA, NAUSEA grass pollen-perennial rye, Allergy Mild SNEEZING, Verified 04/09/20 13:50 standar ITCHY mold Allergy Mild SNEEZING,IT Verified 04/09/20 13:50 HANANE Penicillins Allergy Mild RASH Verified 04/09/20 13:50 codeine AdvReac Mild N/V Verified 04/09/20 13:50 morphine AdvReac Mild N/V Verified 04/09/20 13:50 Dust Allergy Mild SNEEZING,RUNNY Uncoded 04/09/20 13:50 NOSE ITCHY Medications Home Medications Medication Instructions Recorded Confirmed Last Taken albuterol sulfate 1 puff INHALATION Q6H PRN 03/06/19 04/09/20 07/23/19 12:00 abtexktfvm-tirzysy-poobowty 1 cap PO DAILY PRN 03/06/19 04/09/20 1 Week Ago [Fiorinal] ~07/17/19 calcium carbonate-vitamin D3 1 tab PO BID 03/06/19 04/09/20 07/23/19 19:00 [Calcium 600 + D(3)] duloxetine [Cymbalta] 30 mg PO HS 03/06/19 04/09/20 07/23/19 18:00 gabapentin 300 mg PO TID 03/06/19 04/09/20 07/24/19 05:00 hydroxychloroquine [Plaquenil] 200 mg PO BID 03/06/19 04/09/20 07/23/19 18:00 lorazepam 0.5 mg PO TID PRN 03/06/19 04/09/20 07/23/19 20:00 metoprolol succinate 50 mg PO QAM 03/06/19 04/09/20 07/24/19 05:00 montelukast [Singulair] 10 mg PO QAM 03/06/19 04/09/20 07/23/19 08:00 nabumetone 750 mg PO BID 03/06/19 04/09/20 07/16/19 omega 8-pcf-gyf-fish oil [Fish Oil] 1 cap PO BID 03/06/19 04/09/20 07/16/19 omeprazole 40 mg PO QAM 03/06/19 04/09/20 07/24/19 05:00 psyllium husk [Fiber (psyllium 0.52 g PO QPM 03/06/19 04/09/20 07/23/19 18:00 husk)] Holly-D 24 Hour 1 tab PO QAM PRN 07/24/19 04/09/20 07/23/19 08:00 tramadol 50 mg PO Q6H PRN #20 tab 07/24/19 04/09/20 Unknown hydrochlorothiazide 12.5 mg PO QAM 02/07/20 04/09/20 Unknown losartan 50 mg PO QAM 02/07/20 04/09/20 Unknown adalimumab [Humira] 40 mg SUBCUT Q14D 04/09/20 04/09/20 Unknown cyclosporine [Restasis] 1 drp OPHTHALMIC (EYE) Q12H 04/09/20 04/09/20 Unknown melatonin 3 mg PO HS PRN 04/09/20 04/09/20 Unknown Past Medical History Medical History (Updated 04/11/20 @ 20:09 by Rebecca Bain) Anxiety Asthma well controlled Cancer right Cervical spinal stenosis Chronic neck pain Degenerative disc disease Depression Diverticular disease GERD (gastroesophageal reflux disease) H/O Sjogren's disease Hypertension Migraine Mitral valve prolapse s/p ECHO 2017 (trace to at most mild mitral insufficiency) Non-alcoholic fatty liver disease Non-healing wound hx summer 2018 -- Right breast/axillary area following scar revision, follows with [facility] Dr. Xiong Obesity PAT (paroxysmal atrial tachycardia) controlled on beta reyna Peripheral neuropathy bilateral feet Rheumatoid arthritis Spinal stenosis Past Family History Family History Uncle Family hx of colon cancer Past Surgical History Surgical History (Updated 04/11/20 @ 20:10 by Rebecca Bain) Fusion of spine C4-C7 FUSION + C3-4 FUSION (most recent: ACDF C3-C4: 07/24/19: Grade view 1, MAC#3, ETT 7.0 at [facility]) Fusion of spine L4-S1 05/01/17 - MAC #3, ETT #7.0, Grade 1 View H/O shoulder surgery RIGHT DISTAL CLAVICLE SURGERY 12/29/16 - LMA #4 History of arthroscopy RIGHT SHOULDER History of cholecystectomy LAP History of colonoscopy History of esophagogastroduodenoscopy (EGD) History of laminectomy LUMBAR (partial) History of mastectomy BILATERAL History of nasal septoplasty History of total knee replacement LEFT Nausea and vomiting after administration of anesthetic agent USES SCOPALAMINE PATCH AT HOSPITAL S/P scar revision MASTECTOMY SCAR REVISION 03/2019 x2 S/P EDDA-BSO Social History Smoking Status: Never smoker Do You Dip or Chew Tobacco: No Hx Alcohol Use: No Alcohol type: wine alcohol intake frequency: holidays/special occasions only Hx Substance Use: No substance use type: does not use Testing Laboratory Results 04/08/20 WBC 8.54 H/H 14.1/40.9 PLATELETS 260 SODIUM 134 POTASSIUM 3.4 CHLORIDE 100 CO2 27 BUN 10 CREATININE 0.79 GLUCOSE 100 PT 11.0 INR 1.0 TYPE AND SCREEN O+ Ab- Electrocardiogram Date: 04/08/20 NSR at 83bpm. Minimal voltage criteria for LVH, may be normal variant. No significant change compared to 03/13/19 per cardiology. Chest X-Ray Date: 04/08/20 Findings: + NAD Echocardiogram Date: 06/13/18 EF: 55% FINAL IMPRESSION: 1. Normal left ventricular wall motion and EF estimated in the range of 55% 2. Mild sclerotic changes involving both the aortic and mitral valve leaflets. 3. Trace to at most mild mitral and tricuspid valvular insufficiency. 4. Minimal to small amount of pericardial fluid identified. Stress Test Date: 12/21/16 Type: nuclear Findings: + WNL Resting LV Function: normal No significant ST-T wave changes associated with Lexiscan infusion. FINAL IMPRESSION: 1. Normal myocardial perfusion SPECT images without evidence for pharmacologically induced ischemia. 2. Normal left ventricular wall motion and thickening. 3. Normal left ventricular EF post stress at 73%.
--- NOTE | 2020-04-16 08:37 | History & Physical Report ---
Date of Service April 16, 2020 Assessment & Plan (1) Rheumatoid arthritis involving right knee: We will proceed with a right total knee arthroplasty. Postoperatively she will be started on aspirin for DVT prophylaxis and kept overnight in the hospital for postoperative medical management. She plans to use energy physical therapy upon discharge. June is a low risk for knee replacement surgery. She does not have any major comorbidities. Present on Admission?: Yes History of Present Illness Rheumatoid arthritis rheumatoid arthritis Chief Complaint: Rheumatoid arthritis of the right knee Primary Care Provider: Izzy Mckinley MD June is a pleasant 64-year-old female who is been dealing with chronic increasing right knee pain. X-rays and clinical examination have been diagnostic for rheumatoid arthritis of the right knee. I did a left knee replacement on her a year ago and she has done well with that. She has elected to proceed with a right total knee arthroplasty. Allergies Allergy/AdvReac Type Severity Reaction Status Date / Time erythromycin base Allergy Intermediate SEVERE Verified 04/09/20 13:50 STOMACH CRAMPS, DIARRHEA, NAUSEA grass pollen-perennial rye, Allergy Mild SNEEZING, Verified 04/09/20 13:50 standar ITCHY mold Allergy Mild SNEEZING,IT Verified 04/09/20 13:50 HANANE Penicillins Allergy Mild RASH Verified 04/09/20 13:50 codeine AdvReac Mild N/V Verified 04/09/20 13:50 morphine AdvReac Mild N/V Verified 04/09/20 13:50 Dust Allergy Mild SNEEZING,RUNNY Uncoded 04/09/20 13:50 NOSE ITCHY Home Medications Home Medications Medication Instructions Recorded Confirmed Type albuterol sulfate 1 puff INHALATION Q6H PRN 03/06/19 04/09/20 History gzxsltcktz-clbixqm-gqunxksk 1 cap PO DAILY PRN 03/06/19 04/09/20 History [Fiorinal] calcium carbonate-vitamin D3 1 tab PO BID 03/06/19 04/09/20 History [Calcium 600 + D(3)] duloxetine [Cymbalta] 30 mg PO HS 03/06/19 04/09/20 History gabapentin 300 mg PO TID 03/06/19 04/09/20 History hydroxychloroquine [Plaquenil] 200 mg PO BID 03/06/19 04/09/20 History lorazepam 0.5 mg PO TID PRN 03/06/19 04/09/20 History metoprolol succinate 50 mg PO QAM 03/06/19 04/09/20 History montelukast [Singulair] 10 mg PO QAM 03/06/19 04/09/20 History nabumetone 750 mg PO BID 03/06/19 04/09/20 History omega 2-kdh-lij-fish oil [Fish Oil] 1 cap PO BID 03/06/19 04/09/20 History omeprazole 40 mg PO QAM 03/06/19 04/09/20 History psyllium husk [Fiber (psyllium 0.52 g PO QPM 03/06/19 04/09/20 History husk)] Holly-D 24 Hour 1 tab PO QAM PRN 07/24/19 04/09/20 History tramadol 50 mg PO Q6H PRN #20 tab 07/24/19 04/09/20 Rx hydrochlorothiazide 12.5 mg PO QAM 02/07/20 04/09/20 History losartan 50 mg PO QAM 02/07/20 04/09/20 History adalimumab [Humira] 40 mg SUBCUT Q14D 04/09/20 04/09/20 History cyclosporine [Restasis] 1 drp OPHTHALMIC (EYE) Q12H 04/09/20 04/09/20 History melatonin 3 mg PO HS PRN 04/09/20 04/09/20 History Past Med/Surg History Medical History Anxiety Asthma well controlled Cancer right Cervical spinal stenosis Chronic neck pain Degenerative disc disease Depression Diverticular disease GERD (gastroesophageal reflux disease) H/O Sjogren's disease Hypertension Migraine Mitral valve prolapse s/p ECHO 2017 (trace to at most mild mitral insufficiency) Non-alcoholic fatty liver disease Non-healing wound hx summer 2018 -- Right breast/axillary area following scar revision, follows with Darryn Xiong Obesity PAT (paroxysmal atrial tachycardia) controlled on beta reyna Peripheral neuropathy bilateral feet Rheumatoid arthritis Spinal stenosis Surgical History Fusion of spine C4-C7 FUSION + C3-4 FUSION (most recent: ACDF C3-C4: 07/24/19: Grade view 1, MAC#3, ETT 7.0 at [facility]) Fusion of spine L4-S1 05/01/17 - MAC #3, ETT #7.0, Grade 1 View H/O shoulder surgery RIGHT DISTAL CLAVICLE SURGERY 12/29/16 - LMA #4 History of arthroscopy RIGHT SHOULDER History of cholecystectomy LAP History of colonoscopy History of esophagogastroduodenoscopy (EGD) History of laminectomy LUMBAR (partial) History of mastectomy BILATERAL History of nasal septoplasty History of total knee replacement LEFT Nausea and vomiting after administration of anesthetic agent USES SCOPALAMINE PATCH AT HOSPITAL S/P scar revision MASTECTOMY SCAR REVISION 03/2019 x2 S/P EDDA-BSO Family History Uncle Family hx of colon cancer Social History Preferred Language: Vietnamese Communication Ability: Effective 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: No Beliefs That Will Affect Care: None marital status: Current Living Situation: Spouse and Family Current Living Situation Comment: AND SON Feels Safe at Home: Yes Smoking Status: Never smoker Second Hand Exposure: No ; Hx Alcohol Use: No Hx Substance Use: No Review of Systems Review of Systems: All systems reviewed & are unremarkable except as noted in HPI & below Physical Exam Constitutional: WD/WN, vitals as above Eyes: PERRL, conjunctivae normal, anicteric sclerae ENMT: external ear and nose normal, oropharynx normal Neck: trachea midline, no thyromegaly Respiratory: normal respiratory effort Cardiovascular: RRR, no murmur, no edema Gastrointestinal (Abdomen): normal bowel sounds, soft, nontender, no hepatosplenomegaly Musculoskeletal: On physical examination of the right knee there is a trace effusion. There is near full range of motion and no evidence of instability. There is significant tenderness palpation along the medial and lateral joint lines and over the distal femoral condyles. Psychiatric: A+Ox3, euthymic affect Results & Data Results & Data ([facility]) Diagnostic Findings Radiographs of the right knee demonstrate advanced osteoarthritis with joint space narrowing osteophyte formation and ztyw-yk-yzrx articulation. PG Care Time/CCT Total # of Minutes Spent Total Time Spent with Patient: Total time spent is greater than 50% in coordination of care (as documented) at patient's floor/unit and/or counseling patient: Coding Level of Care Code 17824 Initial Inpt Care Lvl 3 Diagnoses Rheumatoid arthritis involving right knee M06.9
[~2020-04-20 07:16] MED LIST changes: -BUPIVACAINE 0.5 % 5 MG/1 ML PF 10ML VIAL ONE; -CEFAZOLIN 2000MG 2,000 MG/15 ML SYR IV SCH; -GABAPENTIN 300 MG x 2 PO SCH; +GABAPENTIN 600 MG DOSE PO SCH; -ROPIVACAINE 0.5% 5 MG/ML 30 ML VIAL ONE; +dexAMETHasone 4 MG TAB PO SCH
[2020-04-20] MEDS ORDERED: BUPIVACAINE 0.5 % 5 MG/1 ML PF 10ML VIAL ONE (07:33)
[2020-04-20] MEDS ORDERED: BUPIVACAINE/EPINEPHRINE 0.25% 1:200,000 30 ML VIAL ONE (07:33)
[2020-04-20] MEDS ORDERED: MIDAZOLAM HCL 1 MG/ML 2ML VIAL ONE ×2 (08:01→09:26)
[2020-04-20] MEDS ORDERED: PROPOFOL IV EMULSION 10 MG/ML 20 ML VIAL IV ONE (08:01)
[2020-04-20] MEDS ORDERED: LIDOCAINE HCL 2% 2 ML VIAL/AMP(20MG/ML) INFIL ONE (08:01)
[2020-04-20] MEDS ORDERED: fentaNYL citrate 100 MCG/2 ML VIAL ONE (08:02)
[2020-04-20] MEDS ORDERED: HYDROmorphone INJ 2 MG/ML SYR/VIAL IV PRN (08:37)
[2020-04-20] MEDS ORDERED: fentaNYL citrate 100 MCG/2 ML VIAL IV PRN (08:37)
[2020-04-20] MEDS ORDERED: ATROPINE SULFATE 0.1 MG/ML 10ML SYR IV PRN (08:37)
[2020-04-20] MEDS ORDERED: ONDANSETRON INJ 2 MG/ML 2 ML VIAL IV PRN ×2 (08:37→12:20)
[2020-04-20] MEDS ORDERED: ePHEDrine sulfate 50 MG/ML AMP IV PRN (08:37)
--- NOTE | 2020-04-20 08:40 | History & Physical Bridge Note ---
Date of Service April 20, 2020 History & Physical Bridge Note I have examined the patient, reviewed the History & Physical and in the interval since the performance of the History & Physical I have noted the following changes of clinical significance: no changes noted
[2020-04-20] MEDS ORDERED: CEFAZOLIN 2,000 MG/15 ML IV PUSH IV ONE (08:48)
[2020-04-20] MEDS ORDERED: ORTHO JOINT ANESTHETIC ONE (08:58)
--- NOTE | 2020-04-20 10:40 | Operative Report ---
PG Post Operative Report Pre & Post Diagnosis Operation Date: 04/20/20 09:20 Pre-Op Diagnosis: Right Knee Degenerative Joint Disease Post-Op Diagnosis: Right Knee Degenerative Joint Disease I identified the patient and participated in the time-out.: Yes Procedure Operation Date: 04/20/20 09:20 Actual Procedures p Right Total Knee Arthroplasty(Right) - Oliver Wells DO Surgeon Oliver Wells DO Loss Claim Clerk Oliver Freire PAC Estimated Blood Loss 20 Findings Consistent with Post-Op Diagnosis Specimens Right femoral and tibial bone Complications none Disposition Disposition: Recovery Room Indications June is a pleasant 64-year-old female who is been dealing with chronic increasing right knee pain. X-rays and clinical examination have been diagnostic for primary osteoarthritis of the right knee. After failing conservative treatment, she has elected to proceed with a right total knee arthroplasty. Description of Procedure Implants used: I used a [employer] Vanguard total knee arthroplasty system with a size 65 femur, 67 tibia, 31 patella, and a size 14 PS polyethylene bearing. All components were cemented in place with Palacos G cement. June arrived [facility] for the above procedure. She was seen in the preoperative holding area and the operative extremity was identified and signed. She was given a preoperative antibiotic, TXA, a spinal anesthetic and an adductor nerve block. She was taken back to the operating room and laid on the table in supine position. She was given basic sedation. The operative knee was then prepped and draped in sterile fashion. A timeout was done, and the patient and the operative extremity was properly identified. A midline incision was made directly over the patella. Dissection was taken down to the extensor mechanism. A subvastus arthrotomy was used. The medial retinaculum was released and the fat pad was mostly excised. The knee was flexed and the ACL, PCL, and meniscus were removed. A drill was sent down the center of the femoral canal followed by an intramedullary lester. Off that lester a distal femoral cutting block was placed. 9 mm was resected off the distal femur at 5 of valgus. A posterior referencing AP sizing guide was then placed on the distal femur. The femur measured to be a size 65. 2 drill holes were placed in 3 of external rotation. A 4-in-1 cutting block was then impacted into place. Anterior, posterior, and chamfer cuts were then made. The posterior stabilizing box guide was then impacted into place and the box was resected for the posterior stabilizing component. The proximal tibia was then exposed. A drill was sent down the center of the tibial canal followed by an intramedullary lester. Off that lester a proximal tibial resection guide was placed. The proximal tibia was then resected. The tibia measured to be a size 67. The tibial plate was then placed in the appropriate rotation and the tibia was punched. The posterior aspect of the knee was then opened up and any additional meniscus fragments and osteophytes were removed. Trial components were then placed. I used a size 14 PS polyethylene insert. The knee was brought through a full range of motion and felt to be stable. The patella was then everted and 8 mm was resected off the posterior aspect of the patella. The patella measured to be a size 31. 3 peg holes were then drilled. A trial patella was placed. The knee was once again brought through a full range of motion and felt to be stable. Trial components were then removed. The surrounding soft tissues were injected with 100 cc of an orthopedic pain control cocktail. All components were then cemented into place with Palacos G cement. The final polyethylene insert was then snapped into place and the anterior bar was locked. Once cement was dry the tourniquet was deflated. Hemostasis was obtained. A dilute betadyne lavage was then done for 3 minutes. The joint was then irrigated with normal saline solution. The subvastus arthrotomy was then closed with #1 Vicryl suture. The skin was closed with 2-0 Vicryl, 3-0V lock suture, and tyrell. A soft compressive dressing was placed. She was then transferred to a hospital bed and taken to the postanesthesia care unit in stable condition. She tolerated the procedure well. Oliver Freire PA-C, was present for the entire procedure. He was critical for patient positioning, prepping, draping, retraction exposure, wound closure and application of sterile dressing. I attest to the content of the Intraoperative Record and any orders documented therein. Any exceptions are noted below.
--- NOTE | 2020-04-20 11:53 | Anesthesiology Progress Note ---
Date of Service April 20, 2020 Anesthesia Post Procedure Vital Signs Vital Signs: Temp Pulse Pulse Resp BP Pulse Ox 04/20/20 11:50 74 16 152/75 H 96 04/20/20 11:40 76 16 144/74 H 98 04/20/20 11:30 68 17 159/68 H 93 04/20/20 11:20 74 16 167/71 H 94 04/20/20 11:10 72 16 155/66 H 99 04/20/20 11:00 81 18 158/68 H 96 04/20/20 10:54 36.8 C 79 16 158/71 H 99 04/20/20 08:09 37.5 C 88 20 157/83 H 99 Transfer of Care Handoff Completed per policy Notes Mental Status: alert / awake / arousable and participated in evaluation Patient Amnestic to Procedure: Yes Nausea / Vomiting: adequately controlled Pain: adequately controlled Airway Patency, RR, SpO2: stable & adequate BP & HR: stable & adequate Hydration State: stable & adequate Anesthetic Complications: no major complications apparent and Pt Satisfied with anesthetic care
--- NOTE | 2020-04-20 12:02 | XRay Report ---
XR knee RT 1 or 2V routine CLINICAL HISTORY: Postoperative evaluation. COMPARISON: Knee radiographs April 08, 2020. FINDINGS: Alignment of the total right knee arthroplasty is anatomic. There is no periprosthetic fra cture or unexpected radiopaque foreign body. Skin tyrell are present. IMPRESSION: Expected findings following total right knee arthroplasty. ACT 112: Negative or not required by law. Electronically signed by: Warren Quijano M.D. 04/20/2020 12:01 PM
[2020-04-20] MEDS ORDERED: HYDROmorphone INJ 0.5 MG/0.5 ML SYR IV PRN (12:20)
[2020-04-20] MEDS ORDERED: ALBUTEROL HFA 8 GM INHALER INH PRN (12:20)
[2020-04-20] MEDS ORDERED: MAGNESIUM HYDROXIDE SUSP 30 ML UDC PO PRN (12:20)
[2020-04-20] MEDS ORDERED: bisacodyL 10 MG SUPP PR PRN (12:20)
[2020-04-20] MEDS ORDERED: OXYCODONE HCL IR 5 MG TAB (IMMEDIATE RELEASE) PO PRN (12:20)
[2020-04-20] MEDS ORDERED: METOCLOPRAMIDE HCL INJ 5 MG/ML 2 ML VIAL IV PRN (12:20)
[2020-04-20] MEDS ORDERED: NALOXONE HCL 0.4 MG/1 ML VIAL/CARP IV PRN (12:20)
[2020-04-20] MEDS: SODIUM CHLORIDE 0.9% 1000ML 1,000 ML IV SCH ×2 (13:30→23:29)
[2020-04-20] MEDS: ACETAMINOPHEN 500 MG TAB PO SCH ×2 (13:34→21:12)
[2020-04-20] MEDS: KETOROLAC 30 MG/ML VIAL IV SCH ×2 (13:34→20:31)
[2020-04-20] MEDS: GABAPENTIN 300 MG CAP PO SCH ×2 (14:30→21:08)
[2020-04-20] MEDS: CEFAZOLIN 2000MG 2,000 MG/15 ML SYR IV SCH (16:57)
[2020-04-20] MEDS ORDERED: DULOXETINE HCL 30 MG CAP PO SCH (21:00)
[2020-04-20] MEDS ORDERED: SENNA 8.6 MG TAB PO SCH (21:00)
[2020-04-20] MEDS: ASPIRIN 81 MG ECTAB PO SCH (21:08)
[2020-04-20] MEDS: DOCUSATE SODIUM 100 MG CAP PO SCH (21:08)
[2020-04-20] MEDS: cycloSPORINE (RESTASIS) OP SCH (21:10)
[2020-04-20] MEDS: HYDROXYCHLOROQUINE SULFATE 200 MG TAB PO SCH (21:19)
[2020-04-21] MEDS: CEFAZOLIN 2000MG 2,000 MG/15 ML SYR IV SCH (00:03)
[2020-04-21] MEDS: KETOROLAC 30 MG/ML VIAL IV SCH ×2 (02:51→07:08)
[2020-04-21] MEDS: ACETAMINOPHEN 500 MG TAB PO SCH (05:08)
[2020-04-21 05:09] LABS: Hemoglobin 11.3 g/dL (12.0-16.0); Mean Corpuscular Hemoglobin 28.5 pg (25-34); Mean Corpuscular Hgb Conc 33.2 g/dL (32-36); Mean Corpuscular Volume 85.6 fL (80-100); Mean Platelet Volume 8.7 fL (7.4-10.4); Platelet Count 231 K/uL (130-400); RDW Coefficient of Variation 14.4 % (11.5-14.5); RDW Standard Deviation 45.1 fL (36.4-46.3); Red Blood Count 3.97 M/uL (4.2-5.4); White Blood Count 14.11 K/uL (4.8-10.8)
[2020-04-21 05:33] LABS: BUN Creatinine Ratio 15.7 (10-20); Calcium 8.5 mg/dl (8.5-10.1); Creatinine Clr Calc Pharmacy 96.1 ml/min; Est GFR (African American) 101.6; Est GFR (Non-African American) 87.7
--- NOTE | 2020-04-21 06:40 | Orthopedic Progress Note ---
Date of Service April 21, 2020 Assessment & Plan (1) History of total right knee replacement: Overall she is doing very well. She is not having much pain in the right knee. She will be seen by physical therapy this morning for ambulation and range of motion exercises. She is on aspirin for DVT prophylaxis. She can be discharged home later today. She will follow-up with orthopedics in 2 weeks. Present on Admission?: Yes Subjective June was seen and examined at bedside this morning. Overall she is doing very well. She is not having much pain in the right knee. She has been up and ambulating. She has no complaints. Physical Exam Musculoskeletal: On physical examination of the right knee, the dressing is clean and dry. She has active dorsiflexion and plantarflexion of her right ankle. Sensation is intact throughout. Results & Data ([facility]) Vital Signs (Past 12 Hours) Vital Signs Temp Pulse Pulse Resp BP Pulse Ox 04/21/20 02:54 36.8 C 83 16 168/75 H 98 04/21/20 00:09 168/74 H 04/20/20 23:57 36.7 C 87 15 97 04/20/20 19:27 36.9 C 86 18 127/70 97 Laboratory Results H & H 04/08/20 04/21/20 Range/Units 14:41 04:49 Hgb 14.1 11.3 L (12.0-16.0) g/dL Hct 40.9 34.0 L (37-47) % Coagulation 04/08/20 Range/Units 14:41 INR 1.0 (0.9-1.1) Diagnostic Findings Postoperative x-rays of the right knee show the prosthesis to be in anatomic alignment without any evidence of fracture, dislocation, or loosening. PG Care Time/CCT Total # of Minutes Spent Total Time Spent with Patient: Total time spent is greater than 50% in coordination of care (as documented) at patient's floor/unit and/or counseling patient: Coding Level of Care Code None Diagnoses History of total right knee replacement Z96.651
--- NOTE | 2020-04-21 06:42 | Discharge Summary ---
Date of Service April 21, 2020 Admission HPI Per Admitting Provider June is a pleasant 64-year-old female who is been dealing with chronic increasing right knee pain. X-rays and clinical examination have been diagnostic for rheumatoid arthritis of the right knee. I did a left knee r eplacement on her a year ago and she has done well with that. She has elected to proceed with a right total knee arthroplasty. Principal Diagnosis Right total knee arthroplasty Discharge Data Allergies Allergy/AdvReac Type Severity Reaction Status Date / Time erythromycin base Allergy Intermediate SEVERE Verified 04/20/20 07:57 STOMACH CRAMPS, DIARRHEA, NAUSEA grass pollen-perennial rye, Allergy Mild SNEEZING, Verified 04/20/20 07:57 standar ITCHY mold Allergy Mild SNEEZING,IT Verified 04/20/20 07:57 HANANE Penicillins Allergy Mild RASH Verified 04/20/20 07:57 codeine AdvReac Mild N/V Verified 04/20/20 07:57 morphine AdvReac Mild N/V Verified 04/20/20 07:57 Dust Allergy Mild SNEEZING,RUNNY Uncoded 04/20/20 07:57 NOSE ITCHY Consultations 04/20/20 12:20 Consult Case Management - Discharge Planning Routine Procedures Performed Operation Date: 04/20/20 09:20 Actual Procedures p Right Total Knee Arthroplasty(Right) - Oliver Wells DO Ordered Studies 04/20/20 05:00 US - OR guided needle placemen Routine Hospital Course (1) History of total right knee replacement: On April 20, 2020 June arrived at [facility] and underwent a right total knee arthroplasty without complication. She had a spinal anesthetic. Postoperatively she was started on aspirin for DVT prophylaxis and transferred to the general orthopedic floors. Her hospital course was uneventful. On postop day #1 her H&H was stable and her pain was well controlled. She was able to participate well with physical therapy doing ambulation and range of motion exercises. She was then discharged home. She will follow-up with orthopedics in 2 weeks. Total Time Total Time Spent Total Time Spent (In Minutes): 20 Discharge Plan Discharge Items Patient Disposition: Home - Home Health Services Reason For Visit: Right Knee Degenerative Joint Disease Discharge Diagnosis: Right total knee arthroplasty Activity: As commented below Non-emergency contact: Surgeon Call non-emergency contact if: your wound has increased redness and your wound has increased drainage Follow-up/Referrals: Izzy Monsalve MD [Primary Care Provider] - Diet: Regular Addtl Attending Provider Instructions: Activity and Therapy Recommendations: * If you are using [facility] then therapy will be provided at your home until they feel you have accomplished all of your goals. * If you are using [facility] then Physical Therapy will be provided until they feel you are ready to start Outpatient Physical Therapy. * If you are not using home therapy then Outpatient Physical Therapy should start about 3-5 days from your day of surgery. Therapy will last about 6-10 weeks * It is important not to put a pillow under your knee when you are relaxing or sleeping. It is just as important to make sure you are getting your knee perfectly straight as it is to regain your knee bend. * You were shown a series of exercises in the hospital. Do these exercises three times each day including the exercises you were shown in physical therapy. * Get up and walk several times each day. For the first four weeks, try not to stand or walk for more than one hour at a time. If you do stand or walk for more than one hour, you will not hurt anything, but your leg will likely swell. * As you feel comfortable, you may change from the walker or crutches to a cane and then to independent walking. Medications: * Narcotic You will likely be sent home from the hospital with a prescription for the narcotic pain medication that worked best throughout your stay. * Aspirin Most patients will be required to take Aspirin 81mg twice a day for 6 weeks after surgery. This is obtained [id number] and a prescription is not necessary. * Other medications may be prescribed for specific circumstances. If you have any questions, please call the office at . * Resume previous home medications unless otherwise instructed TEDs/Elastic Stockings: The white elastic stockings help limit swelling and prevent blood clots from forming in your legs.~ The more you wear them, the more they work. Wear them for six weeks. Dressing Care: If the incision is not draining then you may leave the tyrell open to air. If there is a little bit of drainage or if the tyrell are getting stuck on your clothing then cover the incision with a dry dressing. The tyrell will be removed at your 2 week follow-up appointment. Showering: You may shower 5 days from the day of surgery. Let the soapy shower water run over the tyrell and pat them dry. Do not scrub or soak the incision. Things To Watch For: * Drainage from the incision site that occurs more than one week after your surgery. * Increased redness at the incision site. * Fever above 102 degrees Fahrenheit. * Unusual chest pain or shortness of breath. * Call [facility] at with any of the above problems Follow-Up Visit: Follow-up with Dr. Wells's PA (Oliver Freire) 2-3 weeks after your day of surgery. He will remove your tyrell and answer any questions. If you have any additional questions or concerns, Dr Wells is usually in the office at the same time and will be available An appointment was probably scheduled when you signed-up for surgery in the office. If you have any questions call Office Instructions: More detailed instructions as well as Frequently Asked Questions were provided in a folder by our office when you signed-up for surgery. Please review these instructions when you get home. If you have any further questions or concerns, please feel free to call the office at [phone] Pending Studies at Discharge: No Stand-Alone Forms: [facility], Smoking Cessation Medications and DC Order Prescriptions: New aspirin 81 mg Tablet,Delayed Release (Dr/Ec) 81 mg PO BID 42 Days Qty: 0 RF: 0 Continued nabumetone 750 mg Tablet 750 mg PO BID RF: 0 metoprolol succinate 50 mg Tablet Extended Release 24 Hr 50 mg PO QAM RF: 0 omeprazole 40 mg Capsule,Delayed Release(Dr/Ec) 40 mg PO QAM RF: 0 gabapentin 300 mg Capsule 300 mg PO TID RF: 0 montelukast [Singulair] 10 mg Tablet 10 mg PO QAM RF: 0 hydroxychloroquine [Plaquenil] 200 mg Tablet 200 mg PO BID RF: 0 albuterol sulfate 90 mcg/actuation Hfa Aerosol Inhaler 1 puff INHALATION Q6H PRN (Reason: SOB/WHEEZING) RF: 0 psyllium husk [Fiber (psyllium husk)] 0.52 gram Capsule 0.52 g PO QPM RF: 0 duloxetine [Cymbalta] 30 mg Capsule,Delayed Release(Dr/Ec) 30 mg PO HS RF: 0 calcium carbonate-vitamin D3 [Calcium 600 + D(3)] 600 mg(1,500mg) -400 unit Tablet 1 tab PO BID RF: 0 omega 4-glg-ciq-fish oil [Fish Oil] 360-1,200 mg Capsule,Delayed Re lease(Dr/Ec) 1 cap PO BID RF: 0 lorazepam 0.5 mg Tablet 0.5 mg PO TID PRN (Reason: Anxiety) RF: 0 [id number] [Fiorinal] 50-325-40 mg Capsule 1 cap PO DAILY PRN (Reason: MIGRAINES) RF: 0 Holly-D 24 Hour 180-240 mg Tablet Extended Release 24 Hr 1 tab PO QAM PRN (Reason: ALLERGY RELIEF) RF: 0 tramadol 50 mg Tablet 50 mg PO Q6H PRN (Reason: Pain, Moderate) Qty: 20 RF: 0 losartan 50 mg Tablet 50 mg PO QAM RF: 0 hydrochlorothiazide 12.5 mg Tablet 12.5 mg PO QAM RF: 0 melatonin 3 mg Tablet 3 mg PO HS PRN (Reason: Sleep) RF: 0 Humira 40 mg/0.8 mL Syringe Kit 40 mg SUBCUT Q14D RF: 0 Restasis 0.05 % Dropperette 1 drp OPHTHALMIC (EYE) Q12H RF: 0 Discharge Orders: Discharge Order (Routine); Ordered 04/21/20 Ordered By: Oliver Wells Admission Data Admit Date/Time: 04/20/20 11:02 Attending Provider: Oliver Wells Admit Provider: Oliver Wells Primary Care Provider: Izzy Monsalve Coding Level of Care Code D/C Day Management <30 mins Diagnoses History of total right knee replacement Z96.651
[2020-04-21] MEDS ORDERED: dexAMETHasone 4 MG TAB PO SCH (08:00)
[2020-04-21] MEDS: cycloSPORINE (RESTASIS) OP SCH (08:53)
[2020-04-21] MEDS: ASPIRIN 81 MG ECTAB PO SCH (08:54)
[2020-04-21] MEDS: DOCUSATE SODIUM 100 MG CAP PO SCH (08:55)
[2020-04-21] MEDS: HYDROXYCHLOROQUINE SULFATE 200 MG TAB PO SCH (08:55)
[2020-04-21] MEDS: GABAPENTIN 300 MG CAP PO SCH (08:56)
[2020-04-21] MEDS ORDERED: LOSARTAN POTASSIUM 50 MG TAB PO SCH (09:00)
[2020-04-21] MEDS ORDERED: hydroCHLOROthiazide 25 MG TAB PO SCH (09:00)
[2020-04-21] MEDS ORDERED: MULTIVITAMIN TAB PO SCH (09:00)
[2020-04-21] MEDS ORDERED: PANTOprazole 40 MG TAB PO SCH (09:00)
[2020-04-21] MEDS ORDERED: MONTELUKAST SODIUM 10 MG TABLET PO SCH (09:00)
[2020-04-21] MEDS ORDERED: METOPROLOL SUCC 50MG EXT REL TAB PO SCH (09:00)
[2020-04-22] MEDS ORDERED: NABUMETONE 500 MG TABLET PO SCH (21:00)
== END 2020-04-21 11:29 | disposition home or self-care (01) ==
LOC: 3E 07:16 → ASU 07:16